=== PATIENT | female | born 1955 | race Caucasian/White ===

== ENCOUNTER → 2016-08-03 | Outpatient (CLI) | payer OTHER ==
[~2016-08-03] MED LIST: ACETAMINOPHEN325 M1 PO; ACETYLCYST200 MG/1 M INH; ACID CONTROL20 MG PO; ACIDOPHILUS1 EAC3 PO; ADVAIR 100-501 EACH; ADVAIR 500-501 EACH INH; ADVAIR HFA 230M1 AER INH; ALBUTEROL NEB INH; ALBUTEROL2.5 MG/0.1 INH; ALBUTEROL2.5 MG/0.5 IH; ALBUTEROL2.5 MG/31 INH; ALBUTEROL2.5 MG/32 INH; ALPRAZOLAM 0.0.25 M1 PO; AMOXICILLIN 50500 M1 PO; AUGMENTIN 500-1 EACH PO; AUGMENTIN 875875 M1 PO; AUGMENTIN 875875 MG PO; AZITHROMYCIN 2250 MG PO; BACTRIM DS TAB1 EACH PO; BROVANA15 MCG/2 M IH; BROVANA15 MCG/2 M INH; BUDESONIDE0.5 MG/2 M INH; CARAFATE 1 GM TA1 G1 OR; CARAFATE 1 GM TA1 G1 PO; CARAFATE1 GM/10 ML PO; CARISOPRODOL 3350 MG PO; CEFEPIME-D1 GM/50 ML IV; CEFTAZIDIM2 GM/50 ML IV; CEFTIN 250 MG250 MG PO; CEFTIN500 MG PO; CEPACOL SORE T1 EAC2 PO; CHANTIX0.5 MG PO; CHANTIX1 MG; CHANTIX1 MG PO; CIPROFLOXACIN500 M3 PO; CLARITHROMYCIN250 M2 PO; CLOTRIMAZOLE10 MG BUCCAL; COLACE 100 MG100 MG PO; COMBIVENT INH; CYCLOBENZAPRINE; CYMBALTA PO; CYMBALTA30 MG PO; CYMBALTA60 MG PO; DALIRESP500 MCG PO; DEBROX; DESYREL PO; DEXILANT60 MG PO; DIFLUCAN100 MG PO; DILAUDID 4 MG TA4 M1 PO; DOXYCYCLINE 10100 MG PO; DUONEB 2.5-0.5 M3 ML INH; ENOXAPARIN40 MG/0.1 SUBQ; ETHAMBUTOL HCL400 MG PO; FAMOTIDINE 40 M40 M1 PO; FLAGYL 250 MG250 MG PO; FLECTOR1 EA TP; GLYCOLAX POWDER17 G1 PO; GLYCOLAX17 GM PO; HYDROCODONE-AP1 EA11 PO; HYDROCODONE-AP1 EAC6 PO; HYDROCODONE-AP1 EACH PO; INVANZ1 GM IV; IRON325 PO; K-DUR 20 MEQ T20 MEQ PO; LASIX 20 MG TAB20 MG PO; LEVAQUIN 500 M500 M2 PO; LEVAQUIN 750 M750 MG PO; LISINOPRIL PO; LISINOPRIL20 MG PO; LYRICA PO; LYRICA150 MG PO; LYRICA225 MG PO; MAALOX SUSPENS148 ML PO; MAGIC MOUTHWASH SWISH&SPIT; MAGNESIUM HYDROXIDE PO; MIRALAX17 GM PO; MIRALAX255 GM PO; MIRAPEX0.125 MG PO; MOM PO; MUCINEX TA600 MG/TA1 PO; MUCINEX600 MG PO; MYCOBUTIN150 MG PO; NICOTINE TRANSD14 M1 TOP; NICOTINE TRANSD21 M1 TRANSDERM; NORCO 10-325 T1 EACH PO; NORCO 5-325 TA1 EACH PO; NYSTATIN 1100000 U/M PO; NYSTATIN 1100000 U/M SW&SWALLOW; NYSTATIN 1100000 U/M SWISH&SPIT; OMEPRAZOLE 20 M20 M1 PO; OXYBUTYNIN 5 MG5 M1 PO; OXYCODONE HCL 55 MG PO; PERCOCET 5-3251 EACH PO; POTASSIUM CHLORIDE PO; PREDNISONE 10 M10 M1 PO; PREDNISONE 10 M10 MG; PREDNISONE 10 M10 MG PO; PREDNISONE 20 M20 M1 PO; PREDNISONE 20 M20 MG PO; PREDNISONE 5 MG5 M1 PO; PREDNISONE50 MG PO; PRILOSEC 20 MG20 MG PO; PROBIOTIC1 EAC1 PO; PROTONIX40 M1 PO; PROTONIX40 M2 PO; PULMICORT0.25 MG/1 INH; PULMICORT0.25 MG/2 IH; PULMICORT0.5 MG/2 M INH; REGLAN 5 MG TAB5 M1 PO; REGLAN 5 MG TAB5 MG PO; REQUIP0.5 MG; REQUIP0.5 MG PO; ROCEPHIN 11 GM/1001 IV; ROPINIROLE HCL12 MG; SIMETHICON CHEW80 M1 PO; SOLU-MEDRO125 MG/24 IV PUSH; SPIRIVA INH; SYMBICORT160 MCG/4. INH; TAMSULOSIN HCL0.4 M1 PO; TESSALON PERLE100 MG PO; TRAMADOL 50 MG50 MG PO; TRAZODONE 150150 M1 PO; TRIAMCINOLONE A80 G2; TUCKS MEDICATE1 EAC1; VENTOLIN HFA 1818 GM INH; VIBRAMYCIN 100100 MG PO; VICODIN; XANAX 0.5 MG0.5 M1 PO; ZANAFLEX4 MG PO; ZANTAC 150MG T150 M1 PO; ZESTRIL20 MG PO; ZOFRAN 4 MG ORAL4 M1 DIS
== END ==
LOC: RAD 10:50
DX: R06.00 Dyspnea, unspecified (principal)

== ENCOUNTER 2016-08-07 11:01 | Emergency (ER) | payer OTHER ==
[~2016-08-07] VITALS: Ht 152.4 cm; Wt 43.1 kg
--- NOTE | ~2016-08-07 | EKG ---
[address] [place] [address] ELECTROCARDIOGRAM REPORT Name: DEYANIRA BAILEY Room #: PRE [facility]..#: [id number] Admission: Attend Phys: Discharge: Date of : 57 Report #: [id number] THIS REPORT FOR: //name// [facility] ED Test Date: 2016-08-07 Test Time: 11:10:00 Pat Name: DEYANIRA BAILEY Department: Room: Gender: F Top Former: Lew PIMENTEL : 1955 Requested By: Matthew Lara Order Number: [id number] MD: Brian Gr Measurements Intervals [place] Rate: 97 P: 90 NH: 132 QRS: 73 QRSD: 81 T: 64 QT: 344 QTc: 437 Interpretive Statements Sinus rhythm Compared to ECG 04/14/2016 11:57:36 Sinus tachycardia no longer present Electronically Signed On 08-07-2016 11:22:53 CORRECTIONS IDENTIFICATION TECHNICIAN by Brian Gr [email or web address] <ELECTRONICALLY SIGNED> By: Brian Gr MD 08/07/16 1122 1110 1110 Brian Gr MD /KENNETH
[~2016-08-07 11:01] MED LIST changes: -CHANTIX0.5 MG PO; -OXYBUTYNIN 5 MG5 M1 PO; -ROCEPHIN 11 GM/1001 IV; -SOLU-MEDRO125 MG/24 IV PUSH; -TESSALON PERLE100 MG PO; -ZANAFLEX4 MG PO
[2016-08-07 11:19] LABS: ABSOLUTE NEUTROPHILS 3.1 thou/uL (1.4-8.2); BASOPHILS 1.1 % (0.0-2.0); EOSINOPHILS 3.7 % (0.0-3.0); HEMOGLOBIN 9.7 gm/dL (12.0-15.0); LYMPHOCYTES 15.8 % (24.0-44.0); MCH 28.4 pg (26.0-34.0); MCHC 33.4 % (28.0-37.0); MCV 85.2 fL (80.0-100.0); MONOCYTES 10.3 % (1.0-8.0); PLATELET COUNT 294 thou/uL (150-400); POLYS 69.1 % (36.0-66.0); RDW 17.5 % (10.5-14.5); WBC 4.4 thou/uL (4.0-11.0)
[2016-08-07] MEDS ORDERED: CHANTIX0.5 MG PO (11:19)
[2016-08-07] MEDS ORDERED: ZANAFLEX4 MG PO (11:19)
[2016-08-07 11:20] LABS: MANUAL DIFF NO
[2016-08-07 11:27] LABS: ANION GAP 1 mmol/L (7-16); BUN 8 mg/dL (7-18); CALCIUM 8.7 mg/dL (8.5-10.1); CHLORIDE 95 mmol/L (98-107); CO2 35 mmol/L (21-32); CREATININE 0.7 mg/dL (0.6-1.3); GLUCOSE 108 mg/dL (70-99); POTASSIUM 4.2 mmol/L (3.5-5.1); SODIUM 131 mmol/L (136-145)
[2016-08-07 11:36] LABS: ALBUMIN 3.4 g/dL (3.4-5.0); ALKALINE PHOSPHATASE 87 U/L (46-116); SGOT 7 U/L (15-37); SGPT 13 U/L (30-65); TOTAL BILIRUBIN 0.3 mg/dL (<0.1-1.0); TOTAL PROTEIN 7.1 g/dL (6.4-8.2); TROPONIN-I < 0.04 ng/mL (<0.04-0.07)
[2016-08-07] MEDS ORDERED: PREDNISONE 20 M20 MG PO (14:50)
[2016-08-22] MEDS ORDERED: SOLU-MEDRO125 MG/24 IV PUSH (10:51)
[2016-08-22] MEDS ORDERED: DUONEB 2.5-0.5 M3 ML INH (10:51)
[2016-08-22] MEDS ORDERED: ROCEPHIN 11 GM/1001 IV (10:52)
[2016-08-22] MEDS ORDERED: OXYBUTYNIN 5 MG5 M1 PO (10:52)
[2016-09-04] MEDS ORDERED: TESSALON PERLE100 MG PO (17:05)
== END 2016-08-07 15:16 | disposition home or self-care (01) ==
LOC: ER 11:01
PROVIDERS: Physician Assistant
DX: J44.1 Chronic obstructive pulmonary disease with (acute) exacerbation (principal); K21.9 Gastro-esophageal reflux disease without esophagitis; M79.7 Fibromyalgia; F41.9 Anxiety disorder, unspecified; G25.81 Restless legs syndrome; F17.210 Nicotine dependence, cigarettes, uncomplicated; Z90.710 Acquired absence of both cervix and uterus; Z90.89 Acquired absence of other organs; Z91.040 Latex allergy status; Z88.1 Allergy status to other antibiotic agents

== ENCOUNTER → 2016-08-10 | Outpatient (CLI) | payer OTHER ==
[~2016-08-10] MED LIST changes: +CHANTIX0.5 MG PO; +OXYBUTYNIN 5 MG5 M1 PO; +ROCEPHIN 11 GM/1001 IV; +SOLU-MEDRO125 MG/24 IV PUSH; +TESSALON PERLE100 MG PO; +ZANAFLEX4 MG PO
== END ==
LOC: RAD 12:58
DX: R06.00 Dyspnea, unspecified (principal); J44.1 Chronic obstructive pulmonary disease with (acute) exacerbation; J45.901 Unspecified asthma with (acute) exacerbation

== ENCOUNTER → 2016-10-30 | Outpatient (CLI) | payer OTHER | LOC: RAD 10:41 | DX: R06.02 Shortness of breath (principal) ==

== ENCOUNTER 2016-11-10 20:09 | Inpatient (IN) | payer OTHER ==
[~2016-11-10] VITALS: Ht 152.4 cm; Wt 46.0 kg
--- NOTE | ~2016-11-10 | EKG ---
[address] [place] [address] ELECTROCARDIOGRAM REPORT Name: DEYANIRA BAILEY Room #: 247-P ADM IN M.R.#: [id number] Admission: 11/10/16 Attend Phys: Wm Eddy Discharge: Date of : 57 Report #: [id number] THIS REPORT FOR: //name// [facility] ED Test Date: 2016-11-10 Test Time: 20:20:41 Pat Name: DEYANIRA BAILEY Department: Room: 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 : 1955 Requested By: Dash Menezes Order Number: [id number] MD: Arnel Balderas Measurements Intervals [place] Rate: 132 P: 97 NV: 126 QRS: 51 QRSD: 91 T: 63 QT: 301 QTc: 446 Interpretive Statements Sinus tachycardia Artifact in lead(s) I,II,III,aVR,aVL,aVF,V3,V4 Compared to ECG 09/04/2016 16:07:41 no significant change was found Electronically Signed On 11-12-2016 14:55:54 CDT by Arnel Balderas [email or web address] <ELECTRONICALLY SIGNED> By: Arnel Balderas MD, [facility] 11/12/16 1455 19 19 Arnel Balderas MD, [facility] /EPI
--- NOTE | ~2016-11-10 | D ---
[facility] [place] [address] DISCHARGE SUMMARY Name: DEYANIRA BAILEY Room #: 205-P [facility] IN M.R.#: [id number] Admission: 11/10/16 Attend Phys: Wm Eddy Discharge: 11/16/16 Date of : 57 Report #: [id number] THIS REPORT FOR: //name// CC: Juan Mei FINAL DIAGNOSES: 1. Acute exacerbation of chronic obstructive pulmonary disease. 2. MAC pulmonary infection. 3. Hypertension. 4. Chronic back pain. 5. Tobacco abuse. 6. Acute hypercapnic respiratory failure. PROCEDURES: 1. BiPAP use. 2. Cardiac catheterization. HOSPITAL COURSE: Ms. Bailey was admitted with shortness of breath and was found to have hypercapnic respiratory failure. She was placed on BiPAP, which she initially declined. Overnight, her ABG was improved. She did wear BiPAP few hours the next couple of nights. There was some elevated troponin. She underwent a cardiac catheterization, which only showed mild LAD disease with normal LV function, mildly elevated PA pressure about [address] Roque felt her elevated troponin, was related to the hypoxia from her COPD. She continued antibiotics for her chronic MAC pulmonary infection. She had no other interval complication. PHYSICAL EXAMINATION: GENERAL: On the day of discharge, she was awake and alert. VITAL SIGNS: Temperature 36.7, pulse 83-114, respiration 16, blood pressure 108/70, O2 sat 99% on 2 liters. LUNGS: Has expiratory wheezing. HEART: Regular. ABDOMEN: Soft. EXTREMITIES: Showed no edema. DISPOSITION: [facility] will [facility]. She has strongly encouraged to stop smoking. Current medications will be ordered on transfer. Our service will follow her there. <ELECTRONICALLY SIGNED> By: Pablito Nam MD 11/17/16 0830 1100 1156 Pablito Nam MD /nt
--- NOTE | ~2016-11-10 | H ---
[facility] [place] [address] HISTORY AND PHYSICAL Name: DEYANIRA BAILEY Room #: 247-P ADM IN M.R.#: [id number] Admission: 11/10/16 Attend Phys: Wm Eddy Discharge: Date of : 57 Report #: [id number] THIS REPORT FOR: //name// CC: Juan Mei DATE OF SERVICE: 11/11/2016 CHIEF COMPLAINT: Shortness of breath. HISTORY OF PRESENT ILLNESS: The patient is a 61-year-old female with a known history of severe COPD and MAC pulmonary infection, who presented to the Emergency Room with worsening shortness of breath. She said symptoms seem to be getting worse for about the day, but approximately 30 minutes prior to presentation, she became severely short of breath and was having hard time taking a deep breath. She has had nonproductive cough, but denies any fever. She has had multiple admissions in the past related to COPD and her chronic infection. She has had several admissions to an LTAC facility for prolonged IV antibiotics and pulmonary treatments. She does continue to smoke as well. Recommendations were for BiPAP overnight, which she refused. This morning she seems more alert. There were signs of hypercapnic respiratory failure on ABG, but she seems to have stabilized overnight. She is well known to our service as well as the Pulmonary service. 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 PAST SURGICAL HISTORY: She has had a partial hysterectomy. FAMILY HISTORY: Noncontributory. SOCIAL HISTORY: She has got a 90-sqio-pweu history of smoking and smokes daily, no chronic alcohol use. ALLERGIES: LEVAQUIN causing tendinitis and nausea and topically intolerant to LATEX. MEDICATIONS: DuoNeb, oxybutynin, Protonix, hydrocodone, Zithromax daily, lisinopril, ReQuip, Lyrica, Mucinex, Cymbalta, Advair, mycobutin, ethambutol, Spiriva. REVIEW OF SYSTEMS: She denies headache, chest pain, shortness of breath, abdominal pain, dysuria, syncope or fall. PHYSICAL EXAMINATION: [address] [address] HISTORY AND PHYSICAL Name: DEYANIRA BAILEY Room #: [facility] IN .R.#: [id number] Admission: 11/10/16 Attend Phys: Wm Eddy Discharge: Date of : 57 Report #: [id number] VITAL SIGNS: Temperature 35.2, pulse , respirations 17, blood pressure 117/73, O2 sat 100% on 3 liters nasal cannula. GENERAL: She is awake and alert. She knows her surroundings and recognizes me. HEAD AND NECK: Unremarkable. LUNGS: Distant breath sounds, but clear. No wheezing. HEART: Regular, no murmur. ABDOMEN: Soft, normoactive bowel sounds. EXTREMITIES: No edema. She has muscle atrophy throughout. NEUROLOGIC: Global strength 4/5 throughout. ASSESSMENT: 1. Yjurk-zo-jovonzl hypercapnic respiratory failure. 2. Chronic obstructive pulmonary disease exacerbation. 3. Chronic back and pulmonary infection. 4. Chronic back pain. 5. Hypertension. 6. Tobaccoism. 7. Anemia of chronic disease. 8. Mild protein-calorie malnutrition, albumin 3.2. PLAN: She has been watched in ICU overnight and I spoke with Dr. Licea this morning. From a pulmonary standpoint, she seems stable. I think would be able to transfer out CCU . Continue home medications with antibiotics, steroids, and pulmonary treatments. <ELECTRONICALLY SIGNED> By: Pablito Nam MD 11/12/16 0837 0834 1021 Pablito Nam MD /nt
--- NOTE | ~2016-11-10 | HC ---
[facility] [place] [address] CONSULTATION Name: DEYANIRA BAILEY Room #: 205-P ADM IN M.R.#: [id number] Admission: 11/10/16 Attend Phys: Wm Eddy Discharge: Date of : 57 Report #: [id number] THIS REPORT FOR: //name// CC: Juan Mei DATE OF SERVICE: 11/11/2016 REASON FOR CONSULTATION: Respiratory failure. IMPRESSION: 1. Ecqnx-zy-ihluqwz hypercapnic hypoxic respiratory failure. 2. Exacerbation of chronic obstructive pulmonary disease. 3. History of Mycobacterium avium complex. 4. Elevated troponin. 5. Tobacco use. 6. Chronic back pain. 7. Hypertension. 8. Anemia. PLAN: Antibiotics per ID, aerosol therapy, Solu-Medrol. We will check a repeat troponin. May ask Cardiology to see, echo Sunday. She is refusing CT chest, relating she could not lay back. We discussed ____. Continue ICU protocol, EKG, aerosol, antibiotics and corticosteroids. HISTORY OF PRESENT ILLNESS: A very pleasant 61-year-old female, very pleasant, had been doing her usual respiratory treatments and antibiotics per Dr. Dash Mei for Mycobacterium avium. Came into the Emergency Room with increasing shortness breath and cough. No definite peripheral edema. She does have chronic chest pain related to her coughing and pneumonias. She has had long-term antibiotics at [facility]. She has returned to smoking again. No definite sputum production. No fever or chills. CURRENT MEDICATIONS: Include DuoNeb, azithromycin, cefepime, Cymbalta, Lovenox, ethambutol, guaifenesin, hydrocodone, lisinopril, Solu-Medrol, Protonix, rifabutin, Lyrica and Xanax. ALLERGIES: To DALIRESP, LEVAQUIN and LATEX. PAST MEDICAL HISTORY: Include: 1. Emphysema, FEV1 of 0.33, 17%. 2. Fibromyalgia. 3. Hypertension. 4. Mycobacterium avium complex. 5. Cavitary infiltrate. 6. Fibrotic infiltrates. [facility] [address] [place] [address] CONSULTATION Name: DAILYQUEDEYANIRA MAURI Room #: 205-P [facility] IN .R.#: [id number] Admission: 11/10/16 Attend Phys: Wm Eddy Discharge: Date of : 57 Report #: [id number] 7. Diverticulosis. 8. GERD. 9. Anxiety. 10. RLS. 11. Chronic fatigue. 12. Nephrolithiasis. PAST SURGICAL HISTORY: Include tonsillectomy and hysterectomy. FAMILY HISTORY: COPD and lung CA. SOCIAL HISTORY: Negative ETOH, positive tobacco today. REVIEW OF SYSTEMS: No fever or chills, no weight change. Positive chest pain. No palpitation. No nausea or vomiting. Positive orthopnea. PHYSICAL EXAMINATION: VITAL SIGNS: Temperature 95.4, pulse 95, respirations 17 and blood pressure 106/77. EYES: Negative icterus. NECK: Trachea midline. LUNGS: Showed mild wheeze, left greater than right. HEART: Regular. ABDOMEN: Bowel sounds present. EXTREMITIES: Showed no calf tenderness or edema. NEUROLOGIC: She is alert and oriented. LABORATORY DATA: White count 6.3, hemoglobin 10.4 and platelets 258. Chest x-ray showed chronic changes. No new change. BUN 9 and creatinine 0.7. INR 1. Troponin 0.3 and this morning 0.4. <ELECTRONICALLY SIGNED> By: Juan Licea MD 11/13/16 0548 1309 0019 Juan Licea MD /nt
--- NOTE | ~2016-11-10 | EKG ---
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 11/12/16 1505 1235 1235 Arnel Balderas MD, [facility] /EPI
--- NOTE | ~2016-11-10 | HC ---
[facility] [place] [address] CONSULTATION Name: DEYANIRA BAILEY Room #: 247-P ADM IN M.R.#: [id number] Admission: 11/10/16 Attend Phys: Wm Eddy Discharge: Date of : 57 Report #: [id number] THIS REPORT FOR: //name// CC: Juan Mei DATE OF SERVICE: 11/11/2016 INFECTIOUS DISEASE CONSULTATION ATTENDING PHYSICIAN: Eugenio Mei M.D. REASON FOR EVALUATION: Progressive dyspnea and the patient's severe underlying lung disease with known history of Mycobacterium avium, pulmonary infection, who has been on extended period of combination therapy at this point. HISTORY OF PRESENT ILLNESS: The patient is a 61-year-old white female with longstanding issues with COPD that has been complicated by Mycobacterium infection who over the course of the last couple of weeks has had progressive dyspnea. At this point she is essentially unable to do anything activity capellan without becoming progressively short of breath. She restarted smoking, which may be a contributing factor, she questioned the change in weather as well. She was scheduled to have imaging and followup next week. Denies any fevers or chills. Appetite has been fair. She states her weight has been stable. No significant gastrointestinal-related complaints, although she did admit to "stomach flu" prior to the onset of this particular episode. She is on chronic therapy with azithromycin, rifabutin and ethambutol. On followup chest x-ray, she was unchanged, some scarring. She is not encephalopathic at this point. ALLERGIES: QUINOLONES FAIRLY CAUSES TENDONITIS, SOME NAUSEA WELL, LATEX. CURRENT MEDICATIONS: Include ipratropium, albuterol inhaler, hydrocodone acetaminophen, p.r.n. analgesics, and antiemetics. PAST MEDICAL HISTORY: History of COPD, fibromyalgia, hypertension, anxiety, renal lithiasis, chronic back pain, restless legs, some Mycobacterium intracellulare, pulmonary infection, reflux. SOCIAL HISTORY: She is a smoker. No ethanol, no illicit drug use. FAMILY HISTORY: Noncontributory. REVIEW OF SYSTEMS: As above. PHYSICAL EXAMINATION: GENERAL: Appears chronically ill, undernourished, she is pleasant and [facility] [address] [place] [address] CONSULTATION Name: DEYANIRA BAILEY Room #: 247-P [facility] IN ..#: [id number] Admission: 11/10/16 Attend Phys: Wm Eddy Discharge: Date of : 57 Report #: [id number] cooperative. She is in mild distress at this point, although she is not exerting herself in any way. VITAL SIGNS: Temperature 97.8, pulse 134, respirations 22, blood pressure 98/50. SKIN: Warm, dry, no rashes. HEENT: Neck is supple. LUNGS: Diminished breath sounds. HEART: She has got some respiratory wheezes, she has got some course sounding crackles without evidence of consolidation. ABDOMEN: Soft, nontender. There are no peritoneal signs. GENITOURINARY: Deferred. RECTAL: Deferred. LABORATORY DATA: Troponin was elevated on two occasions at 0.3 and 0.4. PT 10.0, INR of 1.0. Electrolytes; Sodium 139, potassium 4.7, chloride 101, bicarbonate is 31, BUN and creatinine 9 and 0.7. LFTs unremarkable. Albumin of 3.2, total protein 7.3. Estimated GFR of 85. Chest x-ray showed chronic changes without acute process from previous. CBC: White count 6.3, H and H 10.4 and 31.4, platelets of 258. ASSESSMENT: 1. Chronic respiratory failure complicated by chronic pneumonitis with Mycobacterial avium, may have acute process, although it may be something occult. She notes she started smoking, that certainly could contribute. We will restart her combination therapy, monitor expectantly with pulmonary evaluation, probably going to get that imaging CT of the chest since she is here. If there is any opportunity to get any respiratory secretions, would favor that as well. We will see how she does clinically. <ELECTRONICALLY SIGNED> By: Pierce Puente MD 11/12/16 0842 0623 1926 iPerce Puente MD /nt
--- NOTE | ~2016-11-10 | 2DMMODE ---
[facility] [address] [place] [address] 2 D/M-MODE ECHOCARDIOGRAM Name: DEYANIRA BAILEY Room #: 205-P ADM IN M.R.#: [id number] Admission: 11/10/16 Attend Phys: Adrian Goel Discharge: Date of : 57 Date of Service: 11/13/16 1304 Report #: [id number] THIS REPORT FOR: //name// APPROVED REPORT Study performed: 11/13/2016 09:29:16 EXAM: Comprehensive 2D, Doppler, and color-flow Echocardiogram Patient Location: Bedside Room #: 205 Blood Pressure: 115/74 mmHg HR: 83 bpm Other Information Study Quality: Adequate Indications COPD CAD 2D Dimensions LVEF(%): 40.12 (>50%) IVSd: 6.73 (7-11mm) LVOT Diam: 16.00 (18-24mm) LVDd: 40.08 mm PWd: 7.24 (7-11mm) Ascending Ao: 23.97 (22-36mm) LVDs: 32.37 (25-40mm) Aortic Root: 23.19 mm Cueva's LVEF: 40.12 % Volumes Left Atrial Volume (Systole) Single Plane 4CH: 29.54 mL Single Plane 2CH: 12.17 mL LA ESV Index: 15.00 mL/m2 Aortic Valve AoV Peak Larry.: 1.06 m/s AO Peak Gr.: 4.98 mmHg LVOT Max P.05 mmHg LVOT Max V: 0.72 m/s Mitral Valve E/A Ratio: 2.1 MV E Max Larry.: 0.91 m/s [facility] [address] [place] [address] 2 D/M-MODE ECHOCARDIOGRAM Name: DEYANIRA BAILEY Room #: 205-P [facility] IN [facility].#: [id number] Admission: 11/10/16 Attend Phys: Adrian Goel Discharge: Date of : 57 Date of Service: 11/13/16 1304 Report #: [id number] MV A Larry.: 0.44 m/s Pulmonary Valve PV Peak Larry.: 0.67 m/s PV Peak Gr.: 1.79 mmHg Tricuspid Valve TR Peak Larry.: 2.26 m/s RAP Estimate: 5.00 mmHg TR Peak Gr.: 20.45 mmHg PA Pressure: 26.00 mmHg Left Ventricle The left ventricle is normal size. Mid-distal septum hypokinesis. Basal and mid inferior hypokinesis. There is normal left ventricular wall thickness. Left ventricular systolic function is normal. The left ventricular ejection fraction is within the normal range. Left ventricular systolic function is moderately decreased. LVEF is 45%. Transmitral Doppler flow pattern suggests pseudonormalization. Right Ventricle The right ventricle is normal size. The right ventricular systolic function is normal. Atria The left atrium size is normal. The right atrium size is normal. Aortic Valve The aortic valve is normal in structure. No aortic regurgitation is present. There is no aortic valvular stenosis. Mitral Valve The mitral valve is normal in structure. No mitral regurgitation. No evidence of mitral valve stenosis. Tricuspid Valve The tricuspid valve is normal in structure. Trace tricuspid regurgitation. Pulmonic Valve The pulmonary valve is normal in structure. There is no pulmonic valvular regurgitation. Great Vessels The aortic root is normal in size. IVC is normal in size and collapses with >50% inspiration [facility] [address] [place] [address] 2 D/M-MODE ECHOCARDIOGRAM Name: DEYANIRA BAILEY Room #: 205-P ADM IN M.R.#: [id number] Admission: 11/10/16 Attend Phys: Adrian Goel Discharge: Date of : 57 Date of Service: 11/13/16 1304 Report #: [id number] Pericardium There is a small pericardial effusion. <Conclusion> Left ventricular systolic function is moderately decreased. Mid-distal septum hypokinesis. Basal and mid inferior hypokinesis. Transmitral Doppler flow pattern suggests pseudonormalization. LVEF 45%. The aortic valve is normal in structure. There is no aortic insufficiency or stenosis. The mitral valve is normal in structure. No mitral regurgitation. There is a small pericardial effusion. <ELECTRONICALLY SIGNED> By: Arnel Balderas MD, [facility] 11/13/16 1304 1304 1304 Arnel Balderas MD, [facility] /INF
--- NOTE | ~2016-11-10 | EKG ---
[place] [address] [address] [facility] 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 : 1955 Requested By: Juan Licea Order Number: [id number] MD: Arnel Balderas Measurements Intervals [place] Rate: 94 P: 87 MA: 136 QRS: 69 QRSD: 81 T: 254 QT: 399 QTc: 500 Interpretive Statements Sinus rhythm Nonspecific T abnormalities, diffuse leads Borderline prolonged QT interval Compared to ECG 09/04/2016 16:07:41 T-wave abnormality now present Electronically Signed On 11-12-2016 15:11:36 CDT by Arnel Balderas [email or web address] <ELECTRONICALLY SIGNED> By: Arnel Balderas MD, [facility] 11/12/16 1511 0743 0743 Arnel Balderas MD, [facility] /EPI
--- NOTE | ~2016-11-10 | CATHLAB ---
[facility] [address] [place] [address] INVASIVE PROCEDURE REPORT Name: DEYANIRA BAILEY Room #: 205-P [facility] IN [facility].#: [id number] Admission: 11/10/16 Attend Phys: Adrian Goel Discharge: 11/16/16 Date of : 57 Date of Service: 11/16/16 0839 Report #: [id number] THIS REPORT FOR: //name// CC: Juan Mei DATE OF SERVICE: 11/16/2016 PROCEDURE: Right and left cardiac catheterization. INDICATION: Respiratory failure, positive troponins, COPD. DESCRIPTION OF PROCEDURE: Full risks, benefits and alternatives of cardiac catheterization were explained to the patient. All questions were answered. Informed consent was obtained. The right groin area was prepped and draped in a sterile manner. Lidocaine was given subcutaneously. A 4-Argentine sheath was inserted into the right femoral artery, a 7-Argentine sheath was inserted into the right femoral vein, both via modified Seldinger techniques. A Sardis-Gonzales catheter was introduced into the right femoral vein and passed retrograde up into the right atrium. Please see the laborer shipyard hemodynamics for full measurements. PRESSURES: The mean right atrial pressure is 9. The RV pressure is approximately 31/10 mmHg. The mean capillary wedge pressure is 11. The PA pressure is approximately 32/90 mmHg. CORONARY ANATOMY: The left main artery is a moderate to large size caliber vessel, with no flow-limiting lesions. The LAD is a moderate sized caliber vessel, traveling down the anterior wall and wrapping around the apex, terminating in the distal inferior wall. There were no flow-limiting lesions in the LAD. Within the proximal segment, there is mild calcification with a mild stenosis, 20%. The first diagonal artery is a small to moderate sized caliber vessel, with no flow-limiting lesions. The left circumflex artery is a moderate size caliber vessel, codominant. There is mild disease in the proximal circumflex, less than 20%. There are multiple obtuse marginal arteries, with no flow-limiting lesions. [facility] [address] [place] [address] INVASIVE PROCEDURE REPORT Name: DEYANIRA BAILEY Room #: 205-P [facility] IN M.R.#: [id number] Admission: 11/10/16 Attend Phys: Adrian Goel Discharge: 11/16/16 Date of : 57 Date of Service: 11/16/16 0839 Report #: [id number] The RCA supplies a small PDA. There were no flow-limiting lesions in the RCA. A left ventriculogram was performed revealing normal LV systolic function, ejection fraction of 60%. There appears to be focal hypokinesis of the anterior lateral segment. The LVEDP is approximately 18 mmHg. There is no gradient across the outflow tract. IMPRESSION: 1. Mild disease in the left anterior descending and left circumflex arteries. 2. Codominant left circumflex system. 3. Normal left ventricular systolic function, with mild hypokinesis of the anterolateral segment. 4. Mildly elevated pulmonary artery pressures. 5. Recommend medical therapy. <ELECTRONICALLY SIGNED> By: Terry Roque MD 11/17/16 0807 0839 1219 Terry Roque MD /nt
[2016-11-10 20:30] LABS: ABSOLUTE NEUTROPHILS 4.6 thou/uL (1.4-8.2); BASOPHILS 1.1 % (0.0-2.0); HEMATOCRIT 31.4 % (37.0-47.0); HEMOGLOBIN 10.4 gm/dL (12.0-15.0); LYMPHOCYTES 15.7 % (24.0-44.0); MCH 30.4 pg (26.0-34.0); MCHC 33.1 g/dL (28.0-37.0); MCV 91.7 fL (80.0-100.0); MONOCYTES 8.9 % (1.0-8.0); PLATELET COUNT 258 thou/uL (150-400); POLYS 72.3 % (36.0-66.0); RBC 3.43 mil/uL (4.20-5.00); RDW 13.7 % (10.5-14.5); WBC 6.3 thou/uL (4.0-11.0)
[2016-11-10 20:31] LABS: MANUAL DIFF NO
[2016-11-10 20:39] LABS: ABG SAMPLE TYPE VENOUS; BE(vivo) -0.6 mmol/L (-2 to +3); CALCIUM 8.3 mg/dL (8.5-10.1); CREATININE 0.7 mg/dL (0.6-1.0); HCO3 28.7 mmol/L (22.0-26.0); O2(CT) 4.6 mL/dL (15.0-23.0); O2Hb VENOUS 25.4 (65.0-85.0); PCO2 VENOUS 70.8 mmHg (41.0-51.0); PO2 VENOUS 20.9 mmHg (35.0-45.0); POTASSIUM 4.7 mmol/L (3.5-5.1); STICK SITE LINE; sO2 VENOUS 25.3 % (65.0-85.0); tCO2 30.8 mmol/L (24.0-30.0)
[2016-11-10 20:42] LABS: APTT 31.5 Seconds (24.5-32.8)
[2016-11-10 20:51] LABS: ALBUMIN 3.2 g/dL (3.4-5.0); MAGNESIUM 2.1 mg/dL (1.8-2.4); TOTAL BILIRUBIN 0.3 mg/dL (<0.1-1.0); TOTAL PROTEIN 7.3 g/dL (6.4-8.2); TROPONIN-I 0.04 ng/mL (<0.04-0.07)
[2016-11-10] MEDS ORDERED: FLEXERIL PO (22:15)
[2016-11-10] MEDS ORDERED: NORCO 10-325 T1 EACH PO (22:16)
[2016-11-10] MEDS ORDERED: AZITHROMYCIN500 MG PO (22:17)
[2016-11-10] MEDS ORDERED: ADVAIR HFA115 MCG/21 INH (23:11)
[2016-11-10] MEDS ORDERED: ALBUTEROL2.5 MG/31 INH (23:12)
[2016-11-10] MEDS ORDERED: CYMBALTA60 MG PO (23:14)
[2016-11-10] MEDS ORDERED: SPIRIVA INH (23:18)
[2016-11-10 23:39] VITALS: BP 132/98
[2016-11-10 23:45] VITALS: BP 120/85
[2016-11-10 23:46] VITALS: BP 98/50
[2016-11-11] VITALS (19 sets, daily range): BP systolic 73–122; BP diastolic 49–82
[2016-11-12] VITALS (8 sets, daily range): BP systolic 91–122; BP diastolic 60–76
[2016-11-12 05:21] LABS: ABG SAMPLE TYPE ARTERIAL; HCO3 26.8 mmol/L (22.0-26.0); LACTATE 1.13 mmol/L (0.5-2.0); O2(CT) 13.4 mL/dL (15.0-23.0); PCO2 43.2 mmHg (35.0-45.0); STICK SITE R.BRACHIAL; pH 7.411 (7.360-7.450); sO2 98.1 % (92.0-98.0); tCO2 28.2 mmol/L (24.0-30.0)
[2016-11-12 06:48] LABS: RDW 13.7 % (10.5-14.5)
[2016-11-12 06:49] LABS: HEMATOCRIT 27.8 % (37.0-47.0); HEMOGLOBIN 9.5 gm/dL (12.0-15.0); MCH 30.3 pg (26.0-34.0); MCV 89.3 fL (80.0-100.0); RBC 3.12 mil/uL (4.20-5.00)
[2016-11-12 06:54] LABS: CALCIUM 8.7 mg/dL (8.5-10.1); CREATININE 0.6 mg/dL (0.6-1.0); POTASSIUM 4.6 mmol/L (3.5-5.1)
[2016-11-12 06:57] LABS: WBC 1.3 thou/uL (4.0-11.0)
[2016-11-12 12:48] LABS: HEMATOCRIT 30.1 % (37.0-47.0); HEMOGLOBIN 10.1 gm/dL (12.0-15.0); MCH 30.1 pg (26.0-34.0); MCHC 33.4 g/dL (28.0-37.0); MCV 90.1 fL (80.0-100.0); PLATELET COUNT 267 thou/uL (150-400); RBC 3.34 mil/uL (4.20-5.00); RDW 13.5 % (10.5-14.5); WBC 2.7 thou/uL (4.0-11.0)
[2016-11-12 12:50] LABS: MANUAL DIFF YES
[2016-11-12 13:18] LABS: ABSOLUTE NEUTROPHILS 2.2 thou/uL (1.4-8.2); TOTAL CELL COUNT 100
[2016-11-12 13:19] LABS: ANISOCYTOSIS SLIGHT
[2016-11-13] VITALS: BP 121/81
[2016-11-13 03:32] LABS: HEMOGLOBIN 9.7 gm/dL (12.0-15.0); MCH 29.9 pg (26.0-34.0); MCHC 33.4 g/dL (28.0-37.0); MCV 89.6 fL (80.0-100.0); RBC 3.24 mil/uL (4.20-5.00); RDW 13.1 % (10.5-14.5); WBC 3.2 thou/uL (4.0-11.0)
[2016-11-13 03:46] LABS: CALCIUM 8.5 mg/dL (8.5-10.1); CREATININE 0.7 mg/dL (0.6-1.0); POTASSIUM 4.3 mmol/L (3.5-5.1)
[2016-11-13 04:43] VITALS: BP 123/79
[2016-11-13 07:51] VITALS: BP 115/74
[2016-11-13 12:07] VITALS: BP 113/72
[2016-11-13 16:28] VITALS: BP 104/59
[2016-11-13 19:41] VITALS: BP 100/62
[2016-11-14 03:49] VITALS: BP 77/48
[2016-11-14 07:45] VITALS: BP 78/61
[2016-11-14 11:00] VITALS: BP 118/71
[2016-11-14 16:40] VITALS: BP 94/58
[2016-11-14 19:24] VITALS: BP 109/62
[2016-11-15 03:16] VITALS: BP 83/49
[2016-11-15 07:22] VITALS: BP 109/67
[2016-11-15 16:49] VITALS: BP 121/68
[2016-11-15 19:27] VITALS: BP 113/72
[2016-11-16] VITALS (10 sets, daily range): BP systolic 94–143; BP diastolic 62–83
[2016-11-16 03:58] LABS: CALCIUM 8.4 mg/dL (8.5-10.1); CREATININE 0.6 mg/dL (0.6-1.0); POTASSIUM 4.7 mmol/L (3.5-5.1)
[2016-11-16 04:30] LABS: HEMATOCRIT 29.8 % (37.0-47.0); MCH 30.1 pg (26.0-34.0); MCHC 33.6 g/dL (28.0-37.0); MCV 89.7 fL (80.0-100.0); RBC 3.33 mil/uL (4.20-5.00); RDW 13.7 % (10.5-14.5); WBC 4.7 thou/uL (4.0-11.0)
[2016-11-16 08:26] LABS: ABG SAMPLE TYPE ARTERIAL; BE(vivo) 5.5 mmol/L (-2 to +3); HCO3 31.1 mmol/L (22.0-26.0); LACTATE 1.35 mmol/L (0.5-2.0); O2(CT) 15.3 mL/dL (15.0-23.0); O2Hb 97.8 % (92.0-98.0); PCO2 50.8 mmHg (35.0-45.0); PO2 141.5 mmHg (80.0-100.0); pH 7.405 (7.360-7.450); sO2 98.8 % (92.0-98.0); tCO2 32.7 mmol/L (24.0-30.0)
[2016-11-16 08:27] LABS: ABG COMMENT AO; STICK SITE LINE
[2016-11-16 08:29] LABS: ABG SAMPLE TYPE VENOUS; BE(vivo) 4.4 mmol/L (-2 to +3); HCO3 30.4 mmol/L (22.0-26.0); LACTATE 1.28 mmol/L (0.5-2.0); O2(CT) 8.8 mL/dL (15.0-23.0); O2Hb VENOUS 65.7 (65.0-85.0); PCO2 VENOUS 53.3 mmHg (41.0-51.0); PO2 VENOUS 34.8 mmHg (35.0-45.0); sO2 VENOUS 64.2 % (65.0-85.0)
[2016-11-16 08:31] LABS: ABG COMMENT PA; STICK SITE LINE
[2016-11-16] MEDS ORDERED: CARDIZEM CD120 MG PO (11:01)
[2016-11-16] MEDS ORDERED: LISINOPRIL5 MG PO (11:02)
[2016-11-16] MEDS ORDERED: ASPIR 8181 MG PO (11:02)
[2016-11-16] MEDS ORDERED: HYDROCODON-ACE1 EAC7 PO (11:02)
[2016-11-16] MEDS ORDERED: MUCINEX TA600 MG/TAB PO (11:03)
[2016-11-16] MEDS ORDERED: SOLU-MEDRO40 MG/1 M2 IV PUSH (11:03)
== END 2016-11-16 15:24 | DRG 177 ==
LOC: ER 20:09 → EROBS 22:51 → 2N 22:51 → ICU 23:28 → 2N 11-12 17:40
PROVIDERS: Emergency Medicine; Internal Medicine; Internal Medicine Geriatric Medicine; Internal Medicine Pulmonary Disease; Nurse Practitioner Gerontology; Specialist
PROC: 5A09357 Assistance with Respiratory Ventilation, Less than 24 Consecutive Hours, Continuous Positive Airway Pressure (ICD-10-PCS; 2016-11-11)
PROC: B2111ZZ Fluoroscopy of Multiple Coronary Arteries using Low Osmolar Contrast (ICD-10-PCS; principal; 2016-11-16)
PROC: 4A023N8 Measurement of Cardiac Sampling and Pressure, Bilateral, Percutaneous Approach (ICD-10-PCS; principal; 2016-11-16)
DX: A31.0 Pulmonary mycobacterial infection (principal); J96.22 Acute and chronic respiratory failure with hypercapnia; J96.21 Acute and chronic respiratory failure with hypoxia; J44.1 Chronic obstructive pulmonary disease with (acute) exacerbation; E44.1 Mild protein-calorie malnutrition; J44.0 Chronic obstructive pulmonary disease with (acute) lower respiratory infection; Z68.1 Body mass index [BMI] 19.9 or less, adult; I10 Essential (primary) hypertension; F41.9 Anxiety disorder, unspecified; G89.29 Other chronic pain; M54.9 Dorsalgia, unspecified; G25.81 Restless legs syndrome; K21.9 Gastro-esophageal reflux disease without esophagitis; F17.210 Nicotine dependence, cigarettes, uncomplicated; D72.819 Decreased white blood cell count, unspecified; K57.90 Diverticulosis of intestine, part unspecified, without perforation or abscess without bleeding; J18.9 Pneumonia, unspecified organism; D63.8 Anemia in other chronic diseases classified elsewhere; Z91.040 Latex allergy status; Z90.49 Acquired absence of other specified parts of digestive tract; Z88.1 Allergy status to other antibiotic agents; Z87.442 Personal history of urinary calculi; Z90.710 Acquired absence of both cervix and uterus
CPT/HCPCS: 10078; 10081

== ENCOUNTER 2017-02-06 16:09 | Inpatient (IN) | payer OTHER ==
[~2017-02-06] VITALS: Ht 172.7 cm; Wt 43.9 kg
[~2017-02-06 16:09] MED LIST changes: +ADVAIR HFA115 MCG/21 INH; +ASPIR 8181 MG PO; +AZITHROMYCIN500 MG PO; +CARDIZEM CD120 MG PO; +FLEXERIL PO; +HYDROCODON-ACE1 EAC7 PO; +LISINOPRIL5 MG PO; +MUCINEX TA600 MG/TAB PO; +SOLU-MEDRO40 MG/1 M2 IV PUSH
[2017-02-06 16:30] VITALS: BP 109/66
[2017-02-06 17:15] LABS: ABG SAMPLE TYPE ARTERIAL; BE(vivo) 0.6 mmol/L (-2 to +3); LACTATE 0.56 mmol/L (0.5-2.0); O2(CT) 15.4 mL/dL (15.0-23.0); O2Hb 96.9 % (92.0-98.0); PCO2 39.2 mmHg (35.0-45.0); PO2 106.9 mmHg (80.0-100.0); pH 7.422 (7.360-7.450); tCO2 26.2 mmol/L (24.0-30.0)
[2017-02-06 17:16] LABS: STICK SITE L.BRACHIAL
[2017-02-06 19:19] LABS: BASOPHILS 1.2 % (0.0-2.0); EOSINOPHILS 1.3 % (0.0-3.0); HEMATOCRIT 32.4 % (37.0-47.0); HEMOGLOBIN 10.9 gm/dL (12.0-15.0); LYMPHOCYTES 10.8 % (24.0-44.0); MCH 30.7 pg (26.0-34.0); MCHC 33.7 g/dL (28.0-37.0); MCV 91.2 fL (80.0-100.0); MONOCYTES 11.5 % (1.0-8.0); PLATELET COUNT 291 thou/uL (150-400); POLYS 75.2 % (36.0-66.0); RBC 3.55 mil/uL (4.20-5.00); RDW 13.6 % (10.5-14.5); WBC 5.4 thou/uL (4.0-11.0)
[2017-02-06 19:22] LABS: MANUAL DIFF NO
[2017-02-06 19:39] LABS: ALBUMIN 2.9 g/dL (3.4-5.0); CALCIUM 8.4 mg/dL (8.5-10.1); CREATININE 0.6 mg/dL (0.6-1.0); POTASSIUM 3.9 mmol/L (3.5-5.1); TOTAL BILIRUBIN 0.3 mg/dL (<0.1-1.0); TOTAL PROTEIN 6.6 g/dL (6.4-8.2)
[2017-02-06 20:15] VITALS: BP 131/85
[2017-02-06] MEDS ORDERED: LISINOPRIL20 MG PO (21:59)
[2017-02-06] MEDS ORDERED: OXYBUTYNIN 5 MG5 M2 PO (22:01)
[2017-02-06] MEDS ORDERED: LIORESAL 10 MG10 MG PO (22:07)
[2017-02-06] MEDS ORDERED: TRAZODONE HCL50 MG PO (22:08)
[2017-02-06] MEDS ORDERED: VENTOLIN HFA 1818 GM INH (22:09)
[2017-02-06 23:35] VITALS: BP 106/60
[2017-02-07 03:12] VITALS: BP 96/58
[2017-02-07 07:32] VITALS: BP 110/73
[2017-02-07 17:18] VITALS: BP 165/65
[2017-02-07 20:35] VITALS: BP 143/69
[2017-02-08 03:25] VITALS: BP 130/70
[2017-02-08 08:00] VITALS: BP 143/76
[2017-02-08 16:00] VITALS: BP 145/119
[2017-02-08 20:00] VITALS: BP 163/90
[2017-02-09 04:00] VITALS: BP 115/71
[2017-02-09 08:00] VITALS: BP 165/88
[2017-02-09] MEDS ORDERED: SUDOGEST30 MG PO (08:12)
[2017-02-09] MEDS ORDERED: ACETYLCYST200 MG/1 M INH (08:13)
[2017-02-09] MEDS ORDERED: CEFUROXIME500 MG PO (08:13)
[2017-02-09] MEDS ORDERED: PREDNISONE 20 M20 MG PO (08:14)
[2017-02-09 15:06] VITALS: BP 165/88
== END 2017-02-09 16:40 | disposition home or self-care (01) | DRG 189 ==
LOC: 3N 16:09
PROVIDERS: Internal Medicine Geriatric Medicine
DX: J96.21 Acute and chronic respiratory failure with hypoxia (principal); J44.1 Chronic obstructive pulmonary disease with (acute) exacerbation; R04.2 Hemoptysis; F41.9 Anxiety disorder, unspecified; M54.9 Dorsalgia, unspecified; G25.81 Restless legs syndrome; K21.9 Gastro-esophageal reflux disease without esophagitis; G89.29 Other chronic pain; I10 Essential (primary) hypertension; D64.9 Anemia, unspecified; Z88.1 Allergy status to other antibiotic agents; Z91.040 Latex allergy status; Z79.82 Long term (current) use of aspirin; Z79.899 Other long term (current) drug therapy; Z90.711 Acquired absence of uterus with remaining cervical stump; Z87.891 Personal history of nicotine dependence; Z87.442 Personal history of urinary calculi
CPT/HCPCS: 10795

== ENCOUNTER 2017-08-03 15:36 | Inpatient (IN) | payer OTHER ==
[~2017-08-03] VITALS: Ht 152.4 cm; Wt 44.5 kg
--- NOTE | ~2017-08-03 | H ---
[facility] [address] [place] [address] HISTORY AND PHYSICAL Name: DEYANIRA BAILEY Room #: 419-P ADM IN M.R.#: [id number] Admission: 08/03/17 Attend Phys: Wm Eddy Discharge: Date of : 57 Report #: [id number] THIS REPORT FOR: //name// CC: Adrian Mei DATE OF SERVICE: 08/03/2017 CHIEF COMPLAINT: Shortness of breath and cough, congestion. HISTORY OF PRESENT ILLNESS: The patient is a 62-year-old female with a history of severe COPD and Mycobacterium avium complex infection who was admitted from home with increasing shortness of breath. She was seen in the office 2 days ago with increased steroid burst and additional oral antibiotics; however, symptoms are not improved and she has felt her breathing as "tight" and with a congested cough, she has had more wheezing and just felt short of breath. She has had several admissions in the past for very similar symptoms. She is on chronic antibiotic suppression for her MAC pulmonary infection, which is contributing to chronic bronchiectasis. PAST MEDICAL HISTORY: COPD, bronchiectasis, MAC pulmonary infection, hypertension, chronic low back pain, fibromyalgia, iron deficiency anemia, and anxiety. PAST SURGICAL HISTORY: Unknown. FAMILY HISTORY: Noncontributory. SOCIAL HISTORY: A 37-enet-mflq history of smoking, but she says she quit about 2 years ago. No chronic alcohol use. ALLERGIES: LEVAQUIN AND LATEX. MEDICATIONS: Zithromax 500 mg a day, Mycobutin 450 mg a day, ethambutol 800 mg a day, Spiriva daily, DuoNeb q.i.d., Ventolin MDI as needed, pseudoephedrine as needed, baclofen 20 mg t.i.d. p.r.n., Cardizem-CD 120 mg a day, lisinopril 20 mg a day, aspirin 81 mg a day, hydrocodone q.4 hours p.r.n., Tylenol, Lyrica 225 mg twice a day, Cymbalta 60 mg daily, trazodone 75 mg at bedtime, Xanax 0.25 mg t.i.d. p.r.n., Requip 0.5 mg at bedtime, Tessalon Perles, Advair 500 one puff b.i.d., Mucinex b.i.d., MiraLax, prednisone 20 mg a day, oxybutynin 5 mg b.i.d. REVIEW OF SYSTEMS: As above. She denies headache, chest pain, fever, sore throat, nausea, vomiting, diarrhea, constipation, dysuria, or syncope. OBJECTIVE: VITAL SIGNS: Temperature 36.6, pulse 110, respirations 20, blood pressure [address] [address] HISTORY AND PHYSICAL Name: DEYANIRA BAILEY Room #: 419-P [facility] IN M.R.#: [id number] Admission: 08/03/17 Attend Phys: Wm Eddy Discharge: Date of : 57 Report #: [id number] 145/85, O2 sat 100% on 4 liters nasal cannula. GENERAL: She is awake and alert, in no distress. HEAD AND NECK: Unremarkable. LUNGS: She has expiratory wheezing bilaterally with moist cough. HEART: Tachy, regular. No murmur. ABDOMEN: Soft, normoactive bowel sounds. EXTREMITIES: No cyanosis, clubbing or edema. NEUROLOGIC: Motor strength 4/5 throughout. ASSESSMENT: 1. Acute exacerbation of chronic obstructive pulmonary disease. 2. Acute bronchitis. 3. Chronic bronchiectasis. 4. Chronic Mycobacterium avium complex pulmonary infection. 5. Hypertension. 6. Chronic low back pain. 7. Fibromyalgia. PLAN: Lab x-ray data have been ordered. I will ask for studies of respiratory viruses if this is the issue. In the past, she has responded to IV antibiotics and steroids with pulmonary treatments. Home medicines to continue with Lovenox DVT prophylaxis. <ELECTRONICALLY SIGNED> By: Pablito Nam MD 08/04/17 0807 1721 1820 Pablito Nam MD /nt
--- NOTE | ~2017-08-03 | D ---
[facility] [address] [place] [address] DISCHARGE SUMMARY Name: DEYANIRA BAILEY Room #: 419-P DIS IN M.R.#: [id number] Admission: 08/03/17 Attend Phys: Wm Eddy Discharge: 08/07/17 Date of : 57 Report #: [id number] THIS REPORT FOR: //name// CC: Adrian Mei DATE OF SERVICE: 08/07/2017 FINAL DIAGNOSES: 1. Acute exacerbation of chronic obstructive pulmonary disease. 2. Bronchiectasis. 3. Hypertension. HOSPITAL COURSE: The patient was admitted with shortness of breath. Chest x-ray did not show any new infiltrate. Flu and viral screens were still pending; however, she improved significantly with IV antibiotics and IV steroids. MRSA screen was negative. Other home medications are continued. She had no other interval complication. By the time of discharge, she was back down to 3 liters nasal cannula of oxygen at her baseline. She had significantly less wheezing throughout all lung forte and had less productive cough. She was walking the halls independently and was much improved. DISPOSITION: She will be discharged to home with diet and activity as tolerated. Follow up with Dr. Mei and Dr. Licea in 2 weeks. Resume all medications with Ceftin for 1 week and a prednisone taper. <ELECTRONICALLY SIGNED> By: Pablito Nam MD 08/13/17 1250 1221 1716 Pablito Nam MD /kendall
[~2017-08-03 15:36] MED LIST changes: +CEFUROXIME500 MG PO; +LIORESAL 10 MG10 MG PO; +OXYBUTYNIN 5 MG5 M2 PO; +SUDOGEST30 MG PO; +TRAZODONE HCL50 MG PO
[2017-08-03 16:10] VITALS: BP 145/85
[2017-08-03 18:01] LABS: HEMATOCRIT 31.4 % (37.0-47.0); HEMOGLOBIN 10.6 gm/dL (12.0-15.0); MCH 29.8 pg (26.0-34.0); MCHC 33.8 g/dL (28.0-37.0); MCV 88.1 fL (80.0-100.0); RBC 3.57 mil/uL (4.20-5.00); RDW 14.3 % (10.5-14.5); WBC 7.6 thou/uL (4.0-11.0)
[2017-08-03 18:08] LABS: CALCIUM 8.9 mg/dL (8.5-10.1); CREATININE 0.7 mg/dL (0.6-1.0); POTASSIUM 4.6 mmol/L (3.5-5.1)
[2017-08-03 19:12] VITALS: BP 132/78
[2017-08-04 04:14] VITALS: BP 153/79
[2017-08-04 08:55] VITALS: BP 147/75
[2017-08-04 15:35] VITALS: BP 152/88
[2017-08-04 20:00] VITALS: BP 133/72
[2017-08-05 04:30] VITALS: BP 138/82
[2017-08-05 08:00] VITALS: BP 154/90
[2017-08-05 16:00] VITALS: BP 134/72
[2017-08-05 19:26] VITALS: BP 132/72
[2017-08-06 04:00] VITALS: BP 123/71
[2017-08-06 07:20] VITALS: BP 135/89
[2017-08-06 15:10] VITALS: BP 103/68
[2017-08-06 19:15] VITALS: BP 121/70
[2017-08-07 03:54] VITALS: BP 103/63
[2017-08-07 07:15] VITALS: BP 124/68
[2017-08-07] MEDS ORDERED: CEFUROXIME500 MG PO (09:54)
[2017-08-07] MEDS ORDERED: ACETYLCYST200 MG/1 M INH (09:55)
[2017-08-07] MEDS ORDERED: CARDIZEM CD120 MG PO (09:56)
[2017-08-07] MEDS ORDERED: SUDOGEST30 MG PO (09:56)
[2017-08-07] MEDS ORDERED: OXYBUTYNIN 5 MG5 M1 PO (09:56)
[2017-08-07] MEDS ORDERED: PREDNISONE 20 M20 MG PO (09:58)
[2017-08-07 11:08] VITALS: BP 124/68
[2017-08-08 01:08] LABS: ADENOVIRUS Negative (Negative); INFLUENZA A Negative (Negative); INFLUENZA B Negative (Negative); METAPNEUMOVIRUS Negative (Negative); PARAINFLUENZA 1 Negative (Negative); PARAINFLUENZA 2 Negative (Negative); PARAINFLUENZA 3 Negative (Negative); RHINOVIRUS Negative (Negative); RSV A Positive (Negative); RSV B Negative (Negative)
[2018-03-19] MEDS ORDERED: MYAMBUTOL 400400 M1 PO (22:32)
[2018-03-19] MEDS ORDERED: PREDNISONE 5 MG5 M1 PO (22:35)
[2018-03-19] MEDS ORDERED: MYCOBUTIN150 MG PO (22:38)
[2018-03-19] MEDS ORDERED: XANAX 0.25 MG0.25 MG PO (22:41)
[2018-03-20] MEDS ORDERED: TRAZODONE HCL50 MG PO (21:42)
[2018-03-22] MEDS ORDERED: CLARITHROMYCIN250 M2 PO (11:04)
[2018-03-22] MEDS ORDERED: XANAX 0.25 MG0.25 MG PO (11:04)
[2018-03-22] MEDS ORDERED: BENZONATATE100 MG PO (11:05)
[2018-03-22] MEDS ORDERED: MIRALAX17 GM PO (11:05)
[2018-03-22] MEDS ORDERED: PREDNISONE 20 M20 M1 PO (11:06)
[2018-03-22] MEDS ORDERED: CEFUROXIME500 MG PO (11:06)
== END 2017-08-07 13:00 | disposition home or self-care (01) | DRG 191 ==
LOC: 4E 15:36 → ENTRNSPT 08-07 12:44 → EDTRNSPTSTS 08-07 12:52 → 4E 08-07 13:00
PROVIDERS: Internal Medicine Geriatric Medicine
DX: J44.0 Chronic obstructive pulmonary disease with (acute) lower respiratory infection (principal); A31.0 Pulmonary mycobacterial infection; J20.9 Acute bronchitis, unspecified; J44.1 Chronic obstructive pulmonary disease with (acute) exacerbation; I10 Essential (primary) hypertension; M79.7 Fibromyalgia; G89.29 Other chronic pain; M54.5 Low back pain; F41.9 Anxiety disorder, unspecified; Z88.1 Allergy status to other antibiotic agents; Z91.040 Latex allergy status; Z87.891 Personal history of nicotine dependence
CPT/HCPCS: 10783

== ENCOUNTER 2017-11-20 12:59 | Inpatient (IN) | payer OTHER ==
[~2017-11-20] VITALS: Ht 152.4 cm; Wt 49.0 kg
--- NOTE | ~2017-11-20 | HC ---
[facility] [place] [address] [place] [address] CONSULTATION Name: DEYANIRA BAILEY Room #: 463-P ADM IN M.R.#: [id number] Admission: 11/20/17 Attend Phys: Pablito Nam MD Discharge: Date of : 57 Report #: [id number] THIS REPORT FOR: //name// CC: Adrian Nam REASON FOR CONSULTATION: I was asked to evaluate concerning pulmonary Mycobacterium avium complex infection and advanced COPD with exacerbation of such. HISTORY OF PRESENT ILLNESS: The patient has been on treatment for MAC pulmonary infection for over a year. As of yet have not cleared her sputum. She remains on azithromycin, rifabutin and ethambutol. Overall has tolerated the medications well. Presents now with a several-week history of progressive shortness of breath with purulent sputum production. No fever, chills or sweats. She bumped her prednisone from 5 mg to 10 mg a day without any benefit. Now, over the last week has been back down to 5 mg a day. No fever, chills or sweats. Cannot even walk across the room without gasping from breath. Unable to take a bath without significant shortness of breath. She presented to the outpatient clinic today and was admitted from there. No travel. No other risk factors. She has quit smoking over the past 6 months. She requires 3 liters of oxygen per nasal cannula. ALLERGIES: LATEX, LEVAQUIN with nausea. MEDICATIONS: As noted on her SEP, which were reviewed including azithromycin, rifabutin and ethambutol. PAST MEDICAL HISTORY, FAMILY HISTORY, SOCIAL HISTORY: Unchanged from her history and physical and that of my previous consultation in May. Major change has been discontinuation of tobacco following of her child. REVIEW OF SYSTEMS: She has had no pleuritic chest pain. No nausea, vomiting or diarrhea. No dysuria or frequency. PHYSICAL EXAMINATION: VITAL SIGNS: She is afebrile, hemodynamically stable. GENERAL: She was alert and cooperative, short of breath with talking. She is on oxygen per nasal cannula. She was cushingoid. SKIN: Overall, varela with no rash. Thin skin with several ecchymoses to her extremities. HEENT: Unremarkable with no thrush. NECK: Supple. LUNGS: Scattered wheezes throughout with no consolidation. HEART: Regular, without murmur. ABDOMEN: Soft, nontender, no hepatosplenomegaly or mass appreciated. [facility] [address] [place] [address] CONSULTATION Name: DEYANIRA BAILEY Room #: 463-P [facility] IN M.R.#: [id number] Admission: 11/20/17 Attend Phys: Pablito Nam MD Discharge: Date of : 57 Report #: [id number] EXTREMITIES: Unremarkable with no peripheral edema. IMPRESSION AND PLAN: A 62-year-old with underlying chronic obstructive pulmonary disease with exacerbation of such. Still do not have her Mycobacterium under control, but will be reevaluated during his hospital stay with sputum cultures and repeat CT scan. She will continue her current antibiotic therapy for Mycobacterium avium complex along with addition of ceftriaxone. We will also screen for bacterial pathogens. Increase corticosteroids to control her asthma component. <ELECTRONICALLY SIGNED> By: Dash Mei MD 11/21/17 0824 1708 2345 Dash Mei MD /nt
--- NOTE | ~2017-11-20 | HC ---
[facility] [address] [place] [address] CONSULTATION Name: DEYANIRA BAILEY Room #: 431-P [facility] IN ..#: [id number] Admission: 11/20/17 Attend Phys: Pablito Nam MD Discharge: 11/30/17 Date of : 57 Report #: [id number] THIS REPORT FOR: //name// CC: Adrian Nam CHIEF COMPLAINT: Left shoulder pain. HISTORY OF PRESENT ILLNESS: The patient is a pleasant 62-year-old female seen today for evaluation of her left shoulder. The patient reports that she tripped and fell in her room yesterday either over her oxygen tubing or a wheelchair. She landed on her left side, sustaining an injury to her face and left shoulder. She has noted extensive ecchymosis of the arm and pain following this. She was originally placed in a sling yesterday, which she reports she did not tolerate well. She has been admitted for shortness of breath and pulmonary concerns. PAST MEDICAL HISTORY: Significant for COPD with recurrent hospitalizations, bronchiectasis, fibromyalgia, hypertension, Mycobacterium avium complex pulmonary infection, chronic GERD, history of respiratory failure. PAST SURGICAL HISTORY: Partial hysterectomy. SOCIAL HISTORY: The patient reports that she was a prior 24-hzzy-xbkc smoker. Denies alcohol use. ALLERGIES: LATEX, LEVAQUIN, MORPHINE. MEDICATIONS: Please see current MAR. PHYSICAL EXAMINATION: GENERAL: The patient is alert, oriented, answering questions appropriately. VITAL SIGNS: Most recent vitals: Temperature 98.4, pulse 107, respirations 18, BP 133/84, height 5 feet 0 inches, weight 106. EXTREMITIES: Examination of the shoulders reveals the right shoulder has forward elevation actively of 130 degrees. She externally rotates 35 degrees. Mild ecchymosis is noted on the right arm. She has full strength of the upper extremity and intact sensation. The left arm in comparison demonstrates mild swelling about the proximal humerus. Extensive ecchymosis starting from the shoulder and extending just distal to the elbow. Peripheral IV is noted within the dorsum of the hand and wrist. She reports intact sensation over the axillary nerve as well as more distally. She is nontender over the elbow, hand, wrist and fingers. Any attempted motion of the upper extremity, however, reproduces pain proximally about the shoulder. Clavicle appears stable and is nontender. RADIOGRAPHS: Reveal an impacted mildly displaced proximal humerus fracture. [address] [address] CONSULTATION Name: DEYANIRA BAILEY Room #: 431-P [facility] IN ..#: [id number] Admission: 11/20/17 Attend Phys: Pablito Nam MD Discharge: 11/30/17 Date of : 57 Report #: [id number] LABORATORY DATA: Reviewed. IMPRESSION: 1. Left three-part proximal humerus fracture. 2. Multiple medical comorbidities. PLAN: We reviewed the patient's radiographs. We have discussed potential treatment options. In light of her extensive past medical history, I would recommend nonoperative management and overall her fractures in a reasonable position. We discussed immobilization either in a sling or shoulder immobilizer which Rom, her nurse, will get her fitted for today. We discussed this is likely going to be utilized for approximately 4 weeks, at which point we can hopefully initiate physical therapy to begin range of motion exercise and reduce the stiffness that will develop in her shoulder. We have gone over the risks, benefits, alternatives and potential complications of her injury as well as treatment. Questions were encouraged, all were answered. The patient was comfortable in proceeding this manner. <ELECTRONICALLY SIGNED> By: Ti Gauthier MD 01/04/18 0932 1208 14 Ti Gauthier MD /nt
--- NOTE | ~2017-11-20 | H ---
[facility] [place] [address] [address] HISTORY AND PHYSICAL Name: DEYANIRA BAILEY Room #: 463-P [facility] IN M.R.#: [id number] Admission: 11/20/17 Attend Phys: Pablito Nam MD Discharge: Date of : 57 Report #: [id number] THIS REPORT FOR: //name// CC: Adrian Nam DATE OF SERVICE: 11/20/2017 CHIEF COMPLAINT: Shortness of breath. HISTORY OF PRESENT ILLNESS: The patient is a 62-year-old female who was admitted from the office with shortness of breath. She has a longstanding history of COPD and bronchiectasis with recurrent hospitalizations for COPD exacerbation. She also has a history of MAC pulmonary infection. In the last 3 weeks, she has had more wheezing and shortness of breath, especially with exertion. She does wear oxygen continuously. She reports that she stopped smoking several months ago, and she has had less sputum production as a result, but she has just felt more short of breath. She has had some audible wheezing as well. Denies any fever or chills. PAST MEDICAL HISTORY: COPD with recurrent hospitalizations for exacerbation, bronchiectasis, fibromyalgia, hypertension, Mycobacterium avium complex pulmonary infection, chronic gastroesophageal reflux disease, history of hypercapnic hypoxic respiratory failure requiring BiPAP. PAST SURGICAL HISTORY: Partial hysterectomy. FAMILY HISTORY: Noncontributory. SOCIAL HISTORY: She reports that she stopped smoking, but has a 93-dccb-pnxs history of smoking. Denies chronic alcohol use. ALLERGIES: LATEX, LEVAQUIN, MORPHINE. MEDICATIONS: Protonix, Zithromax 250 mg, ethambutol 400 mg daily, rifabutin 150 mg 2 capsules daily, baclofen 10 mg t.i.d., hydrocodone 10 mg q.4 hours p.r.n., trazodone 50 mg one and half tab at bedtime, Xanax 0.25 mg t.i.d., Ventolin inhaler, Spiriva, Requip 0.5 mg at bedtime, Mucinex b.i.d., Lyrica 225 mg twice a day, lisinopril 20 mg, Cymbalta 60 mg, DuoNeb and Advair 500 mcg 1 puff twice a day. REVIEW OF SYSTEMS: She denies headache, chest pain, nausea, vomiting, fever, chills, dysuria, syncope or fall. PHYSICAL EXAMINATION: VITAL SIGNS: Per the nursing note. [address] [address] HISTORY AND PHYSICAL Name: DEYANIRA BAILEY Room #: 463-P [facility] IN ..#: [id number] Admission: 11/20/17 Attend Phys: Pablito Nam MD Discharge: Date of : 57 Report #: [id number] GENERAL: She was awake and alert in the exam room at the office. HEAD AND NECK: Unremarkable. LUNGS: Have expiratory wheezing. HEART: Regular. ABDOMEN: Soft, normoactive bowel sounds. EXTREMITIES: No edema. ASSESSMENT: 1. Chronic obstructive pulmonary disease exacerbation. 2. Bronchiectasis. 3. Mycobacterium avium complex pulmonary infection. 4. Hypertension. 5. Chronic hypoxic respiratory failure. 6. Fibromyalgia. PLAN: Pulmonary and ID consultations. Continue home medications. Consider repeat CT and bronchoscopy. For now usual antibiotics with nebulized treatments and IV steroids. Lovenox for DVT prophylaxis. <ELECTRONICALLY SIGNED> By: Pablito Nam MD 11/20/17 1407 1321 1356 Pablito Nam MD /nt
--- NOTE | ~2017-11-20 | HC ---
[facility] [place] [address] [place] [address] CONSULTATION Name: DEYANIRA BAILEY Room #: 463-P ADM IN M.R.#: [id number] Admission: 11/20/17 Attend Phys: Pablito Nam MD Discharge: Date of : 57 Report #: [id number] THIS REPORT FOR: //name// CC: Eugenio Nam DATE OF SERVICE: 11/20/2017 REFERRING PHYSICIAN: Pablito Nam M.D. PRIMARY CARE PHYSICIAN: Adrian Mei M.D. REASON FOR CONSULTATION: COPD and progressive dyspnea. HISTORY OF PRESENT ILLNESS: The patient is a 62-year-old white female with known COPD, bronchiectasis and Mycobacterium avium complex infection; presents with progressive dyspnea. A pulmonary consultation was requested. The patient is followed longitudinally by Dr. Licea. She states that for the past she has been in her usual state of health until over the past 3 weeks. She has started to notice progressive dyspnea on exertion. Otherwise, denies any fever, night sweats or chills, chest pain or productive cough. She denies any recent nausea, vomiting or diarrhea. She was last hospitalized in the hospital in July 2017. PAST MEDICAL HISTORY: Notable for COPD, emphysema type, baseline FEV1 of 0.32 liters, 17% predicted, oxygen dependent at 3 liters of O2; history of tobacco abuse; fibromyalgia; hypertension; Mycobacterium avium complex pulmonary infection with an apical cavitary disease and fibrotic changes involving the left upper lobe; history of diverticulosis; chronic back pain associated with radiculopathy; gastroesophageal reflux disease; anxiety disorder; history of nephrolithiasis; restless leg syndrome and chronic fatigue. PAST SURGICAL HISTORY: Include hysterectomy, tonsillectomy and prior tongue surgery. ALLERGIES: To LEVOFLOXACIN, which causes tendinitis and severe nausea and LATEX, causes pruritus. HOME MEDICATIONS: List is reviewed. This includes Protonix, Zithromax, ethambutol, rifabutin, baclofen, hydrocodone, trazodone, Xanax, Ventolin MDI, Spiriva, Requip, Mucinex, Lyrica, lisinopril, Cymbalta, DuoNeb and Advair. [facility] [address] [place] [address] CONSULTATION Name: DEYANIRA BAILEY Room #: 463-P [facility] IN ..#: [id number] Admission: 11/20/17 Attend Phys: Pablito Nam MD Discharge: Date of : 57 Report #: [id number] FAMILY HISTORY: Notable for pneumonia in the mother who . She also has COPD. Lung cancer in a maternal aunt. SOCIAL HISTORY: She has smoked most of her life until 2016 and she denies any alcohol use. REVIEW OF SYSTEMS: As mentioned above, otherwise 10-point system review negative. PHYSICAL EXAMINATION: GENERAL: She is awake, alert, in no apparent distress. VITAL SIGNS: Temperature is 98.4 degrees Fahrenheit, pulse 100, respiratory rate is 24, blood pressure 130/70 mmHg and saturation 100%. HEENT: Normocephalic and atraumatic. NECK: Supple, without any lymphadenopathy or thyromegaly. CHEST: Breath sounds are fair without obvious rales or wheezes. CARDIOVASCULAR: Normal S1 and S2. There are no murmurs or gallop. There is no JVD. There is no carotid bruit. Pulses are 2+/4+ bilaterally. ABDOMEN: Soft and nontender. No organomegaly or masses felt. GENITOURINARY: Deferred. RECTAL: Deferred. EXTREMITIES: There is no edema, cyanosis or clubbing. LABORATORY DATA: Pending. IMPRESSION: 1. Progressive dyspnea in this 62-year-old white female. Etiology is probably related to underlying chronic obstructive pulmonary disease with severe pulmonary impairment. It is unclear if her Mycobacterium avium complex infection is contributing. 2. Chronic obstructive pulmonary disease, severe impairment with mild exacerbation. 3. Qedkg-gn-oeeyzns hypoxic respiratory failure. 4. Bronchiectasis along with pulmonary fibrosis along with a history of Mycobacterium avium complex infection. RECOMMENDATIONS: We will review chest x-ray when is available. Agree with current treatment including corticosteroids, bronchodilators. Continue home antibiotics regarding MAC infection. Infectious Disease has been consulted. DVT and GI prophylaxis has been addressed. She may need further imaging studies such as CT chest. Issue regarding possible bronchoscopy has been noted. We will review the chest x-ray and chest CT when available. [address] [address] CONSULTATION Name: DEYANIRA BAILEY Room #: 463-P [facility] IN M.R.#: [id number] Admission: 11/20/17 Attend Phys: Pablito Nam MD Discharge: Date of : 57 Report #: [id number] Thank you for the consultation. <ELECTRONICALLY SIGNED> By: Rashaad Cosme MD 11/22/17 1152 1555 0030 Rashaad Cosme MD /nt
--- NOTE | ~2017-11-20 | D ---
[facility] [place] [address] [place] [address] DISCHARGE SUMMARY Name: DEYANIRA BAILEY Room #: 431-P [facility] IN M.R.#: [id number] Admission: 11/20/17 Attend Phys: Pablito Nam MD Discharge: 11/30/17 Date of : 57 Report #: [id number] THIS REPORT FOR: //name// CC: Adrian Nam DATE OF SERVICE: 11/30/2017 FINAL DIAGNOSES: 1. Chronic obstructive pulmonary disease exacerbation. 2. Left proximal humerus fracture. 3. Metabolic encephalopathy. 4. Mycobacterium avium pulmonary infection. 5. Hypertension. HOSPITAL COURSE: The patient was admitted with COPD exacerbation. She was treated with steroids, antibiotics and nebulized treatments. She was seen by the ID and Pulmonary Services. Unfortunately, the first night of hospitalization, she suffered a fall in her room, resulting in a left proximal humerus fracture. Orthopedics assessed her and placed her in a shoulder immobilizer. She had a lot of trouble with pain control and her usual hydrocodone was not controlling it. Fentanyl, both IV and by patch were added, but the patch dose was increased and she was switched to oral 5 mg oxycodone. She became confused and drowsy. She was moved to ICU briefly, but never developed any respiratory issues. The oxycodone was discontinued due to nausea. Xanax had already been discontinued. Her p.r.n. baclofen and trazodone were stopped. The fentanyl patch was removed. After about 24 hours, she cleared and returned to her baseline. She then transferred out of ICU back to regular floor. Hydrocodone 5 mg was resumed and a low dose of baclofen and Lyrica for her chronic pain. It was noted that she was taking quite a high dose of Lyrica chronically at home, along with hydrocodone 10 mg at home, along with Xanax and baclofen at home without any issues. Hydrocodone, baclofen and Lyrica were all resumed for pain control of the acute fracture at lower doses, which she tolerated without incident. IV antibiotics were switched to oral along with oral steroids. DISPOSITION: She will be transferred to a [facility] for physical and occupational therapy. Diet is regular. Activity as tolerated. She is nonweightbearing on the left arm with shoulder immobilizer. She will need to follow up with Ortho in 1 month for x-ray. She will need an audiology assessment of her hearing. Her Zithromax has been switched to Biaxin. She is on hydrocodone 5 mg, baclofen 10 mg as needed and Lyrica 75 mg twice a day for [address] [address] DISCHARGE SUMMARY Name: DEYANIRA BAILEY Room #: 431-P [facility] IN M.R.#: [id number] Admission: 11/20/17 Attend Phys: Pablito Nam MD Discharge: 11/30/17 Date of : 57 Report #: [id number] chronic neuropathic pain. Follow up with Dr. Mei following discharge from [facility]. <ELECTRONICALLY SIGNED> By: Pablito Nam MD 12/04/17 0836 1550 1838 Pablito Nam MD /nt
[2017-11-20 13:55] VITALS: BP 90/59
[2017-11-20 15:10] LABS: HEMATOCRIT 28.1 % (37.0-47.0); HEMOGLOBIN 9.4 gm/dL (12.0-15.0); MCH 29.8 pg (26.0-34.0); MCHC 33.6 g/dL (28.0-37.0); MCV 88.6 fL (80.0-100.0); RBC 3.17 mil/uL (4.20-5.00); RDW 14.3 % (10.5-14.5); WBC 4.2 thou/uL (4.0-11.0)
[2017-11-20 15:22] LABS: ALBUMIN 3.4 g/dL (3.4-5.0); CALCIUM 8.7 mg/dL (8.5-10.1); CREATININE 0.8 mg/dL (0.6-1.0); POTASSIUM 4.6 mmol/L (3.5-5.1); TOTAL BILIRUBIN 0.4 mg/dL (<0.1-1.0); TOTAL PROTEIN 7.1 g/dL (6.4-8.2)
[2017-11-20 15:46] LABS: BE(vivo) -2.1 mmol/L (-2 to +3); HCO3 23.2 mmol/L (22.0-26.0); PCO2 41.6 mmHg (35.0-45.0); PO2 130.8 mmHg (80.0-100.0); pH 7.364 (7.360-7.450); sO2 98.5 % (92.0-98.0)
[2017-11-20 16:54] VITALS: BP 109/75
[2017-11-20 18:36] VITALS: BP 149/90
[2017-11-20 18:38] VITALS: BP 149/90
[2017-11-20 19:38] VITALS: BP 134/70
[2017-11-20 19:47] VITALS: BP 134/70
[2017-11-21 04:08] VITALS: BP 138/86
[2017-11-21 08:00] VITALS: BP 133/84
[2017-11-21 11:27] VITALS: BP 133/84
[2017-11-21 15:12] VITALS: BP 152/91
[2017-11-21 19:51] VITALS: BP 116/65
[2017-11-22 05:04] VITALS: BP 124/74
[2017-11-22 07:30] VITALS: BP 132/85
[2017-11-22 15:50] VITALS: BP 138/56
[2017-11-22 19:17] VITALS: BP 171/75
[2017-11-23 03:33] VITALS: BP 102/64
[2017-11-23 10:00] VITALS: BP 144/75
[2017-11-23 16:00] VITALS: BP 152/77
[2017-11-23 20:00] VITALS: BP 117/92
[2017-11-24 04:15] VITALS: BP 127/85
[2017-11-24 09:14] VITALS: BP 149/89
[2017-11-24 16:37] VITALS: BP 130/83
[2017-11-24 20:20] VITALS: BP 144/78
[2017-11-25 04:02] VITALS: BP 134/75
[2017-11-25 08:00] VITALS: BP 124/68
[2017-11-25 16:00] VITALS: BP 136/79
[2017-11-25 20:52] VITALS: BP 100/66
[2017-11-26 03:14] VITALS: BP 119/72
[2017-11-26 04:42] VITALS: BP 119/72
[2017-11-26 11:11] LABS: BE(vivo) 0.8 mmol/L (-2 to +3); HCO3 26.8 mmol/L (22.0-26.0); PCO2 48.9 mmHg (35.0-45.0); PO2 106.4 mmHg (80.0-100.0); pH 7.356 (7.360-7.450); sO2 97.6 % (92.0-98.0)
[2017-11-26 11:40] LABS: HEMATOCRIT 26.4 % (37.0-47.0); HEMOGLOBIN 8.8 gm/dL (12.0-15.0); MCH 29.8 pg (26.0-34.0); MCHC 33.4 g/dL (28.0-37.0); MCV 89.2 fL (80.0-100.0); RBC 2.96 mil/uL (4.20-5.00); RDW 14.5 % (10.5-14.5); WBC 12.4 thou/uL (4.0-11.0)
[2017-11-26 11:47] LABS: CALCIUM 8.4 mg/dL (8.5-10.1); POTASSIUM 4.4 mmol/L (3.5-5.1)
[2017-11-26 16:11] VITALS: BP 155/49
[2017-11-26 20:00] VITALS: BP 136/54
[2017-11-27] VITALS (28 sets, daily range): BP systolic 78–141; BP diastolic 50–94
[2017-11-28] VITALS (16 sets, daily range): BP systolic 91–142; BP diastolic 62–95
[2017-11-28 05:00] LABS: CALCIUM 8.3 mg/dL (8.5-10.1); CREATININE 1.6 mg/dL (0.6-1.0); POTASSIUM 4.7 mmol/L (3.5-5.1)
[2017-11-28 05:24] LABS: HEMATOCRIT 22.6 % (37.0-47.0); HEMOGLOBIN 7.7 gm/dL (12.0-15.0); MCH 30.7 pg (26.0-34.0); MCHC 34.2 g/dL (28.0-37.0); MCV 89.7 fL (80.0-100.0); RBC 2.52 mil/uL (4.20-5.00); RDW 14.7 % (10.5-14.5)
[2017-11-29 04:03] VITALS: BP 153/81
[2017-11-29 19:53] VITALS: BP 130/67
[2017-11-30 04:50] VITALS: BP 146/75
[2017-11-30 08:02] VITALS: BP 160/76
[2017-11-30] MEDS ORDERED: CLARITHROMYCIN250 M2 PO (09:05)
[2017-11-30] MEDS ORDERED: CEFDINIR300 MG PO (09:05)
[2017-11-30] MEDS ORDERED: CARDIZEM CD120 MG PO (09:06)
[2017-11-30] MEDS ORDERED: HYDROCODON-ACE1 EAC7 PO (09:06)
[2017-11-30] MEDS ORDERED: BUSPIRONE HCL10 MG PO (09:07)
[2017-11-30] MEDS ORDERED: LYRICA 50 MG50 MG PO (09:07)
[2017-11-30] MEDS ORDERED: PREDNISONE 20 M20 M1 PO (09:08)
== END 2017-11-30 14:46 | disposition home or self-care (01) | DRG 177 ==
LOC: 4W 12:59 → ICU 11-27 00:06 → 4E 11-28 17:58
PROVIDERS: Internal Medicine Geriatric Medicine; Specialist
DX: A31.0 Pulmonary mycobacterial infection (principal); J96.21 Acute and chronic respiratory failure with hypoxia; G92 Toxic encephalopathy; J44.1 Chronic obstructive pulmonary disease with (acute) exacerbation; M80.022A Age-related osteoporosis with current pathological fracture, left humerus, initial encounter for fracture; F41.9 Anxiety disorder, unspecified; G25.81 Restless legs syndrome; M79.7 Fibromyalgia; I10 Essential (primary) hypertension; J84.10 Pulmonary fibrosis, unspecified; R91.1 Solitary pulmonary nodule; H91.90 Unspecified hearing loss, unspecified ear; T40.4X5A Adverse effect of other synthetic narcotics, initial encounter; K21.9 Gastro-esophageal reflux disease without esophagitis; W01.0XXA Fall on same level from slipping, tripping and stumbling without subsequent striking against object, initial encounter; Y93.89 Activity, other specified; Y92.230 Patient room in hospital as the place of occurrence of the external cause; Y99.8 Other external cause status; Z87.891 Personal history of nicotine dependence; Z90.710 Acquired absence of both cervix and uterus; Y92.89 Other specified places as the place of occurrence of the external cause; Z79.51 Long term (current) use of inhaled steroids; Z79.899 Other long term (current) drug therapy; Z88.1 Allergy status to other antibiotic agents; Z91.040 Latex allergy status
CPT/HCPCS: 10045; 10078; 10783

== ENCOUNTER → 2018-01-04 | Outpatient (CLI) | payer OTHER ==
[~2018-01-04] MED LIST changes: +BUSPIRONE HCL10 MG PO; +CEFDINIR300 MG PO; +LYRICA 50 MG50 MG PO
== END ==
LOC: CAT 09:53
DX: J43.9 Emphysema, unspecified (principal); R91.1 Solitary pulmonary nodule

== ENCOUNTER → 2018-02-15 | Outpatient (CLI) | payer OTHER | LOC: PET 09:23 | DX: R91.1 Solitary pulmonary nodule (principal); R91.8 Other nonspecific abnormal finding of lung field; I10 Essential (primary) hypertension; J44.9 Chronic obstructive pulmonary disease, unspecified; Z87.891 Personal history of nicotine dependence ==

== ENCOUNTER 2018-02-23 11:24 | Inpatient (IN) | payer OTHER ==
[~2018-02-23] VITALS: Ht 152.4 cm; Wt 49.8 kg
--- NOTE | ~2018-02-23 | H ---
[facility] [place] [address] HISTORY AND PHYSICAL Name: DEYANIRA BAILEY Room #: 421-P ADM IN M.R.#: [id number] Admission: 02/23/18 Attend Phys: Wm Eddy Discharge: Date of : 57 Report #: [id number] THIS REPORT FOR: //name// CC: Adrian Mei DATE OF SERVICE: 02/23/2018 HISTORY OF PRESENT ILLNESS: This is a patient well known to our service with COPD and acute exacerbation. This patient comes in with worsening shortness of breath and wheezing which she could not control at home and she was subsequently admitted. No fevers, chills or sweats. No other symptoms to suggest cardiac involvement or pulmonary embolism. PAST MEDICAL HISTORY: Noteworthy for a longstanding history of smoking and fibromyalgia. She has Mycobacterium avium intracellulare. She has underlying pulmonary fibrosis and degenerative arthritis. She has had a previous hysterectomy, fracture of the humerus a few months ago on the left. MEDICATION LIST: Includes ethambutol, lisinopril, albuterol, fluconazole or Advair, prednisone 5 mg a day, Lyrica, trazodone, Requip, Mucinex, aerosolized albuterol, Cymbalta and Spiriva. ALLERGIES: LEVOFLOXACIN. FAMILY HISTORY: Noncontributory. SOCIAL HISTORY: She still smokes some. No alcohol use of any significance. She is . REVIEW OF SYSTEMS: Otherwise negative. PHYSICAL EXAMINATION: GENERAL: Shows her lying in bed. She is on oxygen. She is in no distress. HEENT: Otherwise negative. NECK: Supple without thyromegaly or adenopathy. CHEST: Showed end-expiratory wheezing. CARDIOVASCULAR: Shows a regular rate and rhythm without murmur. ABDOMEN: Soft and nontender without hepatosplenomegaly. EXTREMITIES: No cyanosis, clubbing or edema. NEUROLOGIC: Nonfocal. ASSESSMENT AND PLAN: This is a patient with terminal chronic obstructive [facility] [address] [place] [address] HISTORY AND PHYSICAL Name: DEYANIRA BAILEY Room #: 421-P [facility] IN [facility]#: [id number] Admission: 02/23/18 Attend Phys: Wm Eddy Discharge: Date of : 57 Report #: [id number] pulmonary disease and Mycobacterium Avium complex, who is in need of inpatient pulmonary toilet. By: 1030 1039 Adrian Mei MD /nt
--- NOTE | ~2018-02-23 | D ---
[facility] [place] [address] DISCHARGE SUMMARY Name: DEYANIRA BAILEY Room #: 421-P ADM IN M.R.#: [id number] Admission: 02/23/18 Attend Phys: Wm Eddy Discharge: Date of : 57 Report #: [id number] THIS REPORT FOR: //name// CC: Adrian Mei FINAL DIAGNOSES: 1. Chronic obstructive pulmonary disease exacerbation. 2. Mycobacterium avium complex pulmonary infection. 3. Right pulmonary nodule. 4. Hypertension. 5. Fibromyalgia. HOSPITAL COURSE: The patient was admitted with shortness of breath. She was treated for COPD exacerbation. Usual antibiotics were continued and main treatment was the steroid burst with nebulized treatments. Pulmonary followed her. She has a known right pulmonary nodule seen on PET scan as an outpatient recently. The plan is to consider workup and biopsy options as an outpatient once her current status stabilizes. Otherwise usual medications were continued including her oral antibiotics. She had no other interval complication. PHYSICAL EXAMINATION: GENERAL: On the day of discharge, she was awake and alert, in no distress with stable vital signs, including her baseline oxygen at 3 liters nasal cannula. She was up and walking in her room independently. LUNGS: Had scattered wheezing. HEART: Regular. ABDOMEN: Soft, normoactive bowel sounds. EXTREMITIES: No edema. DISPOSITION: She is discharged to home with diet and activity as tolerated, resume all usual medications with a slow prednisone taper. Follow up with Dr. Mei in a week or [address] Cosme in Pulmonary for consideration of biopsy options. By: 1013 1045 Pablito Nam MD /nt
--- NOTE | ~2018-02-23 | EKG ---
[address] [place] [address] ELECTROCARDIOGRAM REPORT Name: DEYANIRA BAILEY Room #: 421-P ADM IN M.R.#: [id number] Admission: 02/23/18 Attend Phys: Wm Eddy Discharge: Date of : 57 Report #: [id number] THIS REPORT FOR: //name// [facility] ED Test Date: 2018-02-23 Test Time: 12:30:25 Pat Name: DEYANIRA BAILEY Department: Room: [facility] Gender: F Ui Designer: Lew DUDLEY : 1955 Requested By: Jimmy Smart Order Number: [id number] MD: Terry Roque Measurements Intervals [place] Rate: 95 P: 88 SD: 140 QRS: 73 QRSD: 84 T: 72 QT: 356 QTc: 448 Interpretive Statements Sinus rhythm Baseline wander in lead(s) V2,V5 Compared to ECG 11/12/2016 07:43:34 T-wave abnormality no longer present Electronically Signed On 02-24-2018 11:02:20 CDT by Terry Roque [email or web address] <ELECTRONICALLY SIGNED> By: Terry Roque MD 02/24/18 1102 1230 1230 Terry Roque MD /EPI
--- NOTE | ~2018-02-23 | HC ---
[facility] [place] [address] CONSULTATION Name: DEYANIRA BAILEY Room #: 421-P [facility] IN M.R.#: [id number] Admission: 02/23/18 Attend Phys: Wm Eddy Discharge: 02/26/18 Date of : 57 Report #: [id number] THIS REPORT FOR: //name// CC: Eugenio Bartlett DR. DATE OF SERVICE: 02/23/2018 REFERRING PROVIDER: Dr. Eugenio Mei. REASON FOR CONSULTATION: Shortness of breath. HISTORY OF PRESENT ILLNESS: Our group was asked to see the patient in consultation while hospitalized at [facility]. A 62-year-old woman, known to our group for severe COPD, pulmonary nodule, currently under further evaluation for possible malignancy, a known history of Mycobacterium avium complex, significant disease in the predominantly left upper lobe, on 3-drug therapy, had been noticing about 7 days' worth of increasing shortness of breath, wheezing. No significant productive cough, no nocturnal dyspnea. Dyspnea is severe, now she cannot even ambulate 10 feet. No fevers, chills or sweats, some chest tightness noted. The patient remains on 5 mg daily of prednisone and had been doing nebulized treatments 4 times daily. The patient also had had some minor cigarette use recently, previously quitting about 9 months ago from long-term tobacco use. The patient has some mild nausea, but no vomiting, no abdominal pain. Denies any chest pain. No recent travel. No prior history of venous thromboembolism. ALLERGIES: INCLUDE LEVAQUIN. PAST MEDICAL HISTORY: 1. Severe COPD. 2. History of Mycobacterium avium pulmonary disease. 3. Emphysema. 4. Pulmonary nodule. 5. History of tobacco abuse. 6. Fibromyalgia. 7. Hypertension. 8. History of diverticulosis. 9. Chronic back pain with radiculopathy. 10. Gastroesophageal reflux disease. 11. Anxiety disorder. 12. History of nephrolithiasis. 13. Restless leg syndrome. 14. Chronic fatigue. [facility] [address] [place] [address] CONSULTATION Name: DAILYQUEDEYANIRA Ole Room #: 421-P [facility] IN M.R.#: [id number] Admission: 02/23/18 Attend Phys: Wm Eddy Discharge: 02/26/18 Date of : 57 Report #: [id number] PAST SURGICAL HISTORY: Includes hysterectomy, tonsillectomy and tongue surgery. FAMILY HISTORY: Father's history is unknown. Mother of pneumonia and COPD. Maternal aunt with lung cancer. SOCIAL HISTORY: Some off and on smoking use recently with a long-term tobacco history. No significant alcohol consumption. REVIEW OF SYSTEMS: CONSTITUTIONAL: No fever, chills or sweats. No change in weight or appetite. ENT: No upper respiratory congestion, rhinorrhea or dysphagia. CARDIOVASCULAR: No chest pains or palpitations. GASTROINTESTINAL: No nausea, vomiting, diarrhea, constipation or abdominal pain. GENITOURINARY: No dysuria or urinary frequency. INTEGUMENT: Denies any rash. MUSCULOSKELETAL: No joint pains or swelling. Rest of 12-point review of systems is negative. PHYSICAL EXAMINATION: VITAL SIGNS: Afebrile, pulse 100-110 and regular, respiratory rate 16, blood pressure 148/74, oxygen saturation 95% on 3 liters nasal cannula. GENERAL: This is a thin, middle-aged woman, in no significant distress. HEENT: Clear oropharynx. No thrush. NECK: Supple, no lymphadenopathy. LUNGS: Diminished, prolonged expiratory phase with diffuse wheezes. CARDIOVASCULAR: Heart regular, but tachycardic. No murmurs. ABDOMEN: Soft, nontender, no mass, no hepatosplenomegaly. EXTREMITIES: Without edema. INTEGUMENT: Without rash. LABORATORY DATA: White blood cell count 2.5 thousand, hemoglobin 11, hematocrit 33, platelet count 281. Sodium 128, potassium 4.0, chloride 95, bicarbonate 29, BUN 6, creatinine 0.7, glucose 111. Troponin less than 0.06. IMPRESSION: 1. Chronic obstructive pulmonary disease with acute exacerbation. 2. History of Mycobacterium avium complex. 3. Pulmonary nodule of unclear significance and potentially malignant. 4. Leukopenia. 5. Hyponatremia. SUGGESTIONS: 1. Consider CT chest PE protocol if not improving with additional therapy for COPD. 2. Systemic steroids with taper. [address] [address] CONSULTATION Name: DEYANIRA BAILEY Room #: 421-P DIS IN M.R.#: [id number] Admission: 02/23/18 Attend Phys: Wm Eddy Discharge: 02/26/18 Date of : 57 Report #: [id number] 3. Frequent bronchodilators. 4. Review PET imaging and prior imaging studies. 5. Follow up electrolyte abnormalities. 6. No change in antimicrobial therapy. Continue therapy for Mycobacterium avium complex disease. We will continue to follow. Thank you for requesting our suggestions. <ELECTRONICALLY SIGNED> By: Norris Chapa MD 02/27/18 1200 2027 1719 Norris Chapa MD /nt
[2018-02-23 11:27] VITALS: BP 101/69
[2018-02-23 12:13] LABS: HEMATOCRIT 32.6 % (37.0-47.0); HEMOGLOBIN 11.1 gm/dL (12.0-15.0); MCH 30.2 pg (26.0-34.0); MCV 88.9 fL (80.0-100.0); RBC 3.66 mil/uL (4.20-5.00); RDW 13.8 % (10.5-14.5); WBC 2.5 thou/uL (4.0-11.0)
[2018-02-23 12:22] LABS: ANION GAP 4 mmol/L (7-16); BUN 6 mg/dL (7-18); CALCIUM 8.9 mg/dL (8.5-10.1); CHLORIDE 95 mmol/L (98-107); CO2 29 mmol/L (21-32); CREATININE 0.7 mg/dL (0.6-1.0); GLUCOSE 111 mg/dL (74-106); SODIUM 128 mmol/L (136-145)
[2018-02-23 12:31] LABS: TROPONIN-I <0.06 ng/mL (<0.06)
[2018-02-23 14:13] VITALS: BP 110/64
[2018-02-23 14:32] VITALS: BP 114/66
[2018-02-23 14:51] VITALS: BP 144/75
[2018-02-23] MEDS ORDERED: PREDNISONE 5 MG5 M1 PO (15:34)
[2018-02-23 19:48] VITALS: BP 148/74
[2018-02-24] MEDS ORDERED: LYRICA 50 MG50 MG PO (01:41)
[2018-02-24] MEDS ORDERED: TRAZODONE HCL50 MG PO (01:44)
[2018-02-24] MEDS ORDERED: REQUIP0.5 MG PO (01:45)
[2018-02-24] MEDS ORDERED: MUCINEX600 MG PO (01:49)
[2018-02-24 07:10] VITALS: BP 133/70
[2018-02-24 15:18] VITALS: BP 108/70
[2018-02-24 21:00] VITALS: BP 134/64
[2018-02-25 07:02] VITALS: BP 126/64
[2018-02-25 15:25] VITALS: BP 145/70
[2018-02-25 19:20] VITALS: BP 127/76
[2018-02-26 09:05] VITALS: BP 147/72
[2018-02-26] MEDS ORDERED: PREDNISONE 20 M20 M1 PO (09:16)
[2018-02-26 11:16] VITALS: BP 147/72
== END 2018-02-26 12:19 | disposition home or self-care (01) | DRG 178 ==
LOC: ER 11:24 → EROBS 13:45 → 4E 13:45 → ENTRNSPT 02-26 12:07 → EDTRNSPTSTS 02-26 12:10 → 4E 02-26 12:19
PROVIDERS: Emergency Medicine
DX: A31.0 Pulmonary mycobacterial infection (principal); J44.1 Chronic obstructive pulmonary disease with (acute) exacerbation; J96.11 Chronic respiratory failure with hypoxia; E87.1 Hypo-osmolality and hyponatremia; M79.7 Fibromyalgia; I10 Essential (primary) hypertension; M19.90 Unspecified osteoarthritis, unspecified site; G25.81 Restless legs syndrome; D72.819 Decreased white blood cell count, unspecified; F17.210 Nicotine dependence, cigarettes, uncomplicated; R91.1 Solitary pulmonary nodule; F41.9 Anxiety disorder, unspecified; K57.90 Diverticulosis of intestine, part unspecified, without perforation or abscess without bleeding; K21.9 Gastro-esophageal reflux disease without esophagitis; Z87.81 Personal history of (healed) traumatic fracture; Z87.442 Personal history of urinary calculi; Z90.710 Acquired absence of both cervix and uterus; Z79.51 Long term (current) use of inhaled steroids; Z79.899 Other long term (current) drug therapy; Z88.1 Allergy status to other antibiotic agents; Z91.040 Latex allergy status; Z82.5 Family history of asthma and other chronic lower respiratory diseases; Z80.1 Family history of malignant neoplasm of trachea, bronchus and lung
CPT/HCPCS: 10084

== ENCOUNTER 2018-04-15 16:06 | Inpatient (IN) | payer OTHER ==
[~2018-04-15] VITALS: Ht 152.4 cm; Wt 51.8 kg
--- NOTE | ~2018-04-15 | HC ---
[facility] [place] [address] CONSULTATION Name: DEYANIRA BAILEY Room #: 452-P ADM IN M.R.#: [id number] Admission: 04/15/18 Attend Phys: Wm Eddy Discharge: Date of : 57 Report #: [id number] THIS REPORT FOR: //name// CC: Adrian Mei DATE OF SERVICE: 04/18/2018 TYPE OF REPORT: Infectious disease consultation. REASON FOR CONSULTATION: I was asked to evaluate concerning Mycobacterium avium complex infection in the setting of advanced COPD and bronchiectasis. Presents now with an exacerbation of her COPD. HISTORY OF PRESENT ILLNESS: Over the last 2 weeks, the patient has had increasing cough and sputum production. Her developed a lower respiratory tract infection prior to this. Other members of the family also developed respiratory symptoms. She has had no fever, chills or sweats. She has had purulent sputum production and occasional hemoptysis. She presents to the hospital for further treatment. Chest x-ray shows no acute pulmonary infiltrate. She does have persistent changes with left upper lobe disease as well as a right lower lobe nodule that has been followed. She had imaging studies including CT scan, which showed a mild increase in the right lower lobe, pleural based nodule. It is 1.1 x 0.9 cm. She was supposed to have a PET scan recently, I have been unable to obtain that record. She has been followed by Pulmonary Medicine. As far as her Mycobacterium avium complex, has gone. She developed increased infiltrates. Sputum culture and bronchoscopy cultures over the last several years have identified Mycobacterium avium complex. First culture was positive in June of 2014. Subsequent to that, she has had recurring positive cultures. Had difficulty tolerating her medication program at the start. Took over a year to get her on therapy. It has been over approximately a year and a half. She has been on her combination treatment where she has tolerated it reasonably well. This has included clarithromycin, ethambutol and rifabutin. She has had two sensitivity test reports, first one in 2015 where she had organism sensitive to clarithromycin, [place] of 2, ethambutol was at 16, rifampin was a greater than 8, Cipro was at 16 and moxifloxacin was at 2. This was repeated on 11/23/2017 where clarithromycin again was sensitive. Other sensitivity reports were approximately the same with ethambutol greater than 16, rifampin greater than 8, ciprofloxacin 16, Zyvox 16 and moxifloxacin 2. She has had trial of quinolone for her treatment but has developed tendinitis while on this. We did not go to Zyvox due to her previous intolerance of other medications with other GI upset. Further evaluation has included fungal serology tests and cultures, which have been negative. Her initial immunoglobulin level in 2012 was 342. This was repeated and was 542. Because of this level that was just mildly low, no further intervention was recommended. [address] [address] CONSULTATION Name: DEYANIRA BAILEY Ole Room #: 452-P [facility] IN M.R.#: [id number] Admission: 04/15/18 Attend Phys: Wm Eddy Discharge: Date of : 57 Report #: [id number] ALLERGIES: LATEX and LEVAQUIN. MEDICATIONS: As noted on her SEP, now including ceftriaxone in addition to her MAC treatment. PAST MEDICAL HISTORY: COPD, bronchiectasis, Mycobacterium avium complex, pulmonary infection, right lower lobe pulmonary nodule, indeterminate fibromyalgia, chronic back pain, gastroesophageal reflux, anxiety, nephrolithiasis, hypertension, restless leg syndrome, chronic pain syndrome, hypothyroidism, coronary artery disease and hysterectomy. FAMILY HISTORY: Noncontributory. SOCIAL HISTORY: Long-term smoker, has been off cigarettes for several months now. No significant alcohol intake. REVIEW OF SYSTEMS: CONSTITUTIONAL: She has been on and off corticosteroids and has remained cushingoid. No documented fever, chills or sweats. HEENT: No change in her vision. No oral lesions. PULMONARY: As above. CARDIOVASCULAR: Negative. GASTROINTESTINAL: Negative. GENITOURINARY: Negative. JOINTS: Chronic myalgias and arthralgias. Chronic back pain. This has been unchanged. NEUROLOGICAL: Negative. PSYCHIATRIC: Anxiety under reasonable control. SKIN: Without lesion. LYMPHATIC: Negative. PHYSICAL EXAMINATION: VITAL SIGNS: Afebrile and hemodynamically stable. GENERAL: She is alert and cooperative, in no acute distress, lying in bed, although she did have loose minimally productive cough. She was on oxygen per nasal cannula. She was cushingoid. HEENT: No scleral icterus or conjunctivitis. No oral lesions or mucositis. NECK: Supple. LUNGS: Bilateral wheezes. No consolidation. HEART: Regular, without murmur, gallop or rub. ABDOMEN: Soft and nontender. No hepatosplenomegaly or mass. SKIN: Without lesion. LYMPHATIC: No palpable adenopathy. EXTREMITIES: Without cyanosis or peripheral edema. NEUROLOGICAL: The cranial nerves intact. Strength in her extremities was [facility] [address] [place] [address] CONSULTATION Name: DEYANIRA BAILEY Room #: 452-P ADM IN M.R.#: [id number] Admission: 04/15/18 Attend Phys: Wm Eddy Discharge: Date of : 57 Report #: [id number] unremarkable. Sensation intact. Mood normal. RADIOLOGICAL DATA: Chest x-ray showed emphysema and left upper lobe scarring. CT scan showed right lower lobe nodule 1.1 x 0.9 cm, which was pleural based. She had upper lobe changes as well, which appeared more chronic. LABORATORY DATA: BNP 167. Sputum culture pending. Hemoglobin 10.7; platelet count 417,000 and WBC 8.9. Creatinine 0.7. Liver function tests normal. IMPRESSION: 1. Chronic obstructive pulmonary disease exacerbation with bronchitis, exacerbation of her bronchiectasis. 2. Mycobacterium avium complex infection. 3. Advanced chronic obstructive pulmonary disease. 4. Bronchiectasis. 5. Chronic steroid use. 6. Fibromyalgia with chronic pain syndrome. 7. Anxiety. RECOMMENDATIONS: We will continue current antibiotic program. We will repeat immunoglobulin levels. We will obtain PET scan report and discuss further with Pulmonary Medicine. I am not inclined to repeat bronchoscopy at this point. Her previous bronchoscopies have had negative cytology. I would like to see her PET scan and decide if we should pursue transthoracic biopsy of the right lower lobe lesion. If there is evidence of cancer there that would definitely change our approach to her care. I have been concerned about her Mycobacterium persistence. I am suspecting that she does take her drugs. May need to obtain serum levels to ensure adequate absorption. We will fairly limited as to treatment options for her due to her intolerances. If her right lower lobe lesion is noncancerous, I would then consider attempting a change in her antibiotic program. May also consider referral to [facility] for their recommendations. <ELECTRONICALLY SIGNED> By: Dash Mei MD 04/19/18 0753 14 0113 Dash Mei MD /nt
--- NOTE | ~2018-04-15 | H ---
[facility] [place] [address] HISTORY AND PHYSICAL Name: DEYANIRA BAILEY Room #: 452-P ADM IN M.R.#: [id number] Admission: 04/15/18 Attend Phys: Wm Eddy Discharge: Date of : 57 Report #: [id number] THIS REPORT FOR: //name// CC: Adrian Mei DATE OF SERVICE: 04/15/2018 CHIEF COMPLAINT: Shortness of breath. HISTORY OF PRESENT ILLNESS: The patient was admitted from the office with increasing shortness of breath, cough and congestion. She has a long-standing history of COPD mediated from smoking with emphysema and bronchiectasis related to chronic MAC pulmonary infection. She has had multiple hospitalizations over the last several years for recurrent pulmonary issues. At times, she has had hypercapnic failure, requiring BiPAP use, but in the recent months, mainly centers on exacerbation of COPD and bronchiectasis. She just reported more wheezing, shortness of breath and congested cough in the last several days. PAST MEDICAL HISTORY: COPD, O2 dependent; MAC pulmonary infection; emphysema; bronchiectasis; hypertension and chronic pain. PAST SURGICAL HISTORY: Unknown. FAMILY HISTORY: Noncontributory. SOCIAL HISTORY: A [id number] history of smoking, but claims that she stopped smoking a year ago. No chronic alcohol use. ALLERGIES: LEVAQUIN. MEDICATIONS: Cefuroxime, ethambutol 800 mg daily, rifabutin 150 mg daily, Spiriva, DuoNebs, albuterol inhaler, lisinopril 20 mg, hydrocodone 10 mg q. 4 hours p.r.n. pain, Lyrica 250 mg b.i.d., Cymbalta 60 mg, trazodone 75 mg at bedtime, Xanax 0.25 mg q. 6 hours p.r.n., Requip 0.5 mg at bedtime, Tessalon, Advair, Mucinex, MiraLax and prednisone. REVIEW OF SYSTEMS: She denies headache, chest pain, abdominal pain, nausea, vomiting, diarrhea, constipation, dysuria or syncope. PHYSICAL EXAMINATION: VITAL SIGNS: Temperature 36.4, pulse 91, respirations 20, blood pressure 132/72 and O2 sat 100% on 4 liters of oxygen. GENERAL: She is awake and alert, in no distress. HEAD AND NECK: Unremarkable. LUNGS: Have expiratory wheezing, especially the left upper lobe. HEART: Regular. [facility] [address] [place] [address] HISTORY AND PHYSICAL Name: DEYANIRA BAILEY Room #: 452-P ADM IN .R.#: [id number] Admission: 04/15/18 Attend Phys: Wm Eddy Discharge: Date of : 57 Report #: [id number] ABDOMEN: Soft. Normoactive bowel sounds. EXTREMITIES: No edema. NEUROLOGIC: Motor strength 4/5 throughout. ASSESSMENT: 1. Chronic obstructive pulmonary disease exacerbation. 2. Chronic Mycobacterium avium pulmonary infection. 3. Emphysema. 4. Hypertension. 5. Chronic back pain syndrome. PLAN: In regards to her usual medicines, I will add IV Rocephin, IV steroids and pulmonary treatments. She has responded to this treatment in the past. <ELECTRONICALLY SIGNED> By: Pablito Nam MD 04/17/18 1239 1026 1129 Pablito Nam MD /nt
--- NOTE | ~2018-04-15 | D ---
[facility] [place] [address] DISCHARGE SUMMARY Name: DEYANIRA BAILEY Room #: 452-P DIS IN M.R.#: [id number] Admission: 04/15/18 Attend Phys: Wm Eddy Discharge: 04/22/18 Date of : 57 Report #: [id number] THIS REPORT FOR: //name// CC: Adrian Mei DATE OF SERVICE: 04/22/2018 FINAL DIAGNOSES: 1. Chronic obstructive pulmonary disease exacerbation. 2. Chronic bronchiectasis. 3. Pulmonary nodule. 4. Emphysema. 5. Acute bronchitis due to Stenotrophomonas. HOSPITAL COURSE: The patient was admitted with shortness of breath and treated for COPD exacerbation with IV antibiotics, steroids, and pulmonary treatments. She is followed by the Pulmonary and ID service. She did have some complaints of hemoptysis. They felt it was related to Lovenox, which was discontinued. Sputum culture grew Stenotrophomonas maltophilia. Antibiotics were adjusted accordingly. CT revealed a small right pleural based nodule. Radiology felt this was slightly larger from a few months ago. Pulmonary recommended outpatient followup with a CT and consideration of some genetic markers. She would be at high risk for open lung biopsy and her treatment options, due to her severe emphysema, would be limited. If this proved to be malignant at this time, the plan was to take a conservative approach and discuss further outpatient options with lab and imaging. Otherwise, she had no other interval complication. However, her wheezing and congested cough was slow to improve. She was still requiring IV steroids and relatively high flow oxygen of 4-5 liters nasal cannula. The plan was to transfer to an LTAC facility for continued pulmonary care physician oversight and IV steroids. DISPOSITION: She is transferring to [facility] under the care of Dr. Eugenio Mei. I have signed her transfer medications, orders, diet, activity and pulmonary treatments. <ELECTRONICALLY SIGNED> By: Pablito Nam MD 05/02/18 1058 0942 1508 Pablito Nam MD /nt
[~2018-04-15 16:06] MED LIST changes: +BENZONATATE100 MG PO; +MYAMBUTOL 400400 M1 PO; +XANAX 0.25 MG0.25 MG PO
[2018-04-15] MEDS ORDERED: PREDNISONE 10 M10 MG PO (17:01)
[2018-04-15 19:07] LABS: ABSOLUTE NEUTROPHILS 3.2 thou/uL (1.4-8.2); BASOPHILS 1.4 % (0.0-2.0); EOSINOPHILS 5.4 % (0.0-3.0); HEMATOCRIT 34.2 % (37.0-47.0); HEMOGLOBIN 11.7 gm/dL (12.0-15.0); LYMPHOCYTES 22.4 % (24.0-44.0); MCH 30.3 pg (26.0-34.0); MCHC 34.3 g/dL (28.0-37.0); MCV 88.2 fL (80.0-100.0); MONOCYTES 11.2 % (1.0-8.0); PLATELET COUNT 389 thou/uL (150-400); POLYS 59.6 % (36.0-66.0); RBC 3.87 mil/uL (4.20-5.00); RDW 14.4 % (10.5-14.5); WBC 5.4 thou/uL (4.0-11.0)
[2018-04-15 19:19] LABS: ALBUMIN 3.4 g/dL (3.4-5.0); CALCIUM 9.5 mg/dL (8.5-10.1); CREATININE 0.9 mg/dL (0.6-1.0); POTASSIUM 3.8 mmol/L (3.5-5.1); TOTAL BILIRUBIN 0.4 mg/dL (<0.1-1.0); TOTAL PROTEIN 7.3 g/dL (6.4-8.2)
[2018-04-15 19:30] VITALS: BP 123/69
[2018-04-15] MEDS ORDERED: HYDROCODON-ACE1 EAC5 PO (19:39)
[2018-04-15 23:41] VITALS: BP 96/51
[2018-04-16 03:30] VITALS: BP 129/57
[2018-04-16 08:00] VITALS: BP 132/72
[2018-04-16 15:46] VITALS: BP 117/75
[2018-04-16 19:21] VITALS: BP 130/68
[2018-04-17 03:29] VITALS: BP 147/66
[2018-04-17 08:00] VITALS: BP 143/66
[2018-04-17 15:36] VITALS: BP 162/72
[2018-04-17 19:10] VITALS: BP 136/53
[2018-04-18 03:10] VITALS: BP 129/47
[2018-04-18 06:19] LABS: HEMATOCRIT 31.2 % (37.0-47.0); HEMOGLOBIN 10.7 gm/dL (12.0-15.0); MCHC 34.3 g/dL (28.0-37.0); MCV 87.5 fL (80.0-100.0); RBC 3.56 mil/uL (4.20-5.00); WBC 8.9 thou/uL (4.0-11.0)
[2018-04-18 06:25] LABS: CALCIUM 9.2 mg/dL (8.5-10.1); CREATININE 0.7 mg/dL (0.6-1.0); POTASSIUM 4.2 mmol/L (3.5-5.1)
[2018-04-18 07:43] VITALS: BP 144/89
[2018-04-18 15:20] VITALS: BP 119/72
[2018-04-18 19:36] VITALS: BP 129/71
[2018-04-19 07:14] LABS: CALCIUM 8.8 mg/dL (8.5-10.1); CREATININE 0.7 mg/dL (0.6-1.0); POTASSIUM 4.5 mmol/L (3.5-5.1)
[2018-04-19 08:00] VITALS: BP 146/72
[2018-04-19 19:07] LABS: IgA 131 mg/dL (87-352); IgG 599 mg/dL (700-1600); IgM 67 mg/dL (26-217)
[2018-04-19 19:22] VITALS: BP 139/70
[2018-04-20 07:30] VITALS: BP 133/66
[2018-04-20 19:35] VITALS: BP 114/72
[2018-04-21 05:42] LABS: HEMATOCRIT 30.8 % (37.0-47.0); HEMOGLOBIN 10.5 gm/dL (12.0-15.0); MCH 30.4 pg (26.0-34.0); MCHC 34.3 g/dL (28.0-37.0); MCV 88.5 fL (80.0-100.0); RBC 3.47 mil/uL (4.20-5.00); RDW 14.3 % (10.5-14.5)
[2018-04-21 05:53] LABS: CALCIUM 8.7 mg/dL (8.5-10.1); CREATININE 0.8 mg/dL (0.6-1.0); POTASSIUM 4.2 mmol/L (3.5-5.1)
[2018-04-21 07:25] VITALS: BP 116/62
[2018-04-21 19:44] VITALS: BP 146/72
[2018-04-22 07:22] VITALS: BP 156/98
[2018-04-22] MEDS ORDERED: CLARITHROMYCIN250 M2 PO (12:25)
[2018-04-22] MEDS ORDERED: BACTRIM DS TAB1 EACH PO (12:25)
[2018-04-22] MEDS ORDERED: IPRAT-ALBUT 0.5-3 ML INH ×2 (12:26)
[2018-04-22] MEDS ORDERED: FLUCONAZOLE 10100 MG PO (12:26)
[2018-04-22] MEDS ORDERED: PULMICORT0.5 MG/22 INH (12:27)
[2018-04-22] MEDS ORDERED: LASIX 20 MG TAB20 MG PO (12:27)
[2018-04-22] MEDS ORDERED: SUDOGEST30 MG PO (12:27)
[2018-04-22] MEDS ORDERED: SOLU-MEDRO125 MG/23 IV PUSH (12:28)
[2018-04-22 22:05] LABS: IgG 612 mg/dL (700-1600)
== END 2018-04-22 17:56 | DRG 177 ==
LOC: 4W 16:06
PROVIDERS: Internal Medicine; Internal Medicine Geriatric Medicine; Specialist
PROC: 05H933Z Insertion of Infusion Device into Right Brachial Vein, Percutaneous Approach (ICD-10-PCS; principal; 2018-04-22)
DX: A31.0 Pulmonary mycobacterial infection (principal); J96.21 Acute and chronic respiratory failure with hypoxia; J96.22 Acute and chronic respiratory failure with hypercapnia; J44.1 Chronic obstructive pulmonary disease with (acute) exacerbation; J44.0 Chronic obstructive pulmonary disease with (acute) lower respiratory infection; R04.2 Hemoptysis; J20.8 Acute bronchitis due to other specified organisms; F17.210 Nicotine dependence, cigarettes, uncomplicated; G89.4 Chronic pain syndrome; F41.9 Anxiety disorder, unspecified; M79.7 Fibromyalgia; R91.1 Solitary pulmonary nodule; I10 Essential (primary) hypertension; M54.9 Dorsalgia, unspecified; D89.9 Disorder involving the immune mechanism, unspecified; J45.909 Unspecified asthma, uncomplicated; D64.9 Anemia, unspecified; L29.8 Other pruritus; Z88.8 Allergy status to other drugs, medicaments and biological substances; Z79.899 Other long term (current) drug therapy; Z90.711 Acquired absence of uterus with remaining cervical stump; Z99.81 Dependence on supplemental oxygen; Z91.040 Latex allergy status; Z79.52 Long term (current) use of systemic steroids; Z23 Encounter for immunization
CPT/HCPCS: 10047; 27000

== ENCOUNTER 2018-05-08 14:29 | Inpatient (IN) | payer OTHER ==
[~2018-05-08] VITALS: Ht 152.4 cm; Wt 55.1 kg
--- NOTE | ~2018-05-08 | H ---
[facility] [place] [place] [address] HISTORY AND PHYSICAL Name: DEYANIRA BAILEY Room #: 350-P ADM IN M.R.#: [id number] Admission: 05/08/18 Attend Phys: Wm Eddy Discharge: Date of : 57 Report #: [id number] THIS REPORT FOR: //name// CC: Adrian Mei DATE OF SERVICE: 05/08/2018 CHIEF COMPLAINT: Abdominal pain and abnormal lab work. HISTORY OF PRESENT ILLNESS: The patient is a 63-year-old female with significant lung disease, transferred back from [facility] facility for evaluation of rising creatinine and hyponatremia. She was hospitalized here about a month ago for COPD exacerbation. She has significant lung disease due to prior smoking and I believe there is a degree of emphysema. She also has an unspecified pulmonary nodule, I believe in the right base, and a chronic history of MAC pulmonary infection for which she takes chronic oral suppression. She has had multiple hospitalizations for respiratory exacerbations over the last several years. She is on chronic steroids and O2 at home. She transferred to the [facility] and was receiving usual care. However, in the last several days, she is complaining of some abdominal pain and fullness and a sense of constipation. She is also now describing difficulty urinating. In the last 3 days, her creatinine has risen from normal baseline to 2, to now up to 3.4. Her sodium is now down to 123. Also, of note, a recent sputum culture at the [facility] facility has revealed Pseudomonas, which is sensitive to Zosyn. PAST MEDICAL HISTORY: Hypertension, fibromyalgia, COPD, MAC pulmonary infection, chronic pain syndrome, chronic anxiety. She has had multiple hospitalizations related to her lung disease. She has had acute hypercapnic respiratory failure in the past, requiring BiPAP. PAST SURGICAL HISTORY: Unknown. FAMILY HISTORY: Noncontributory. SOCIAL HISTORY: A 75-[id number]-winr history of smoking. She reports quitting 1-2 years ago. ALLERGIES: LEVAQUIN. MEDICATIONS: Clarithromycin, Bactrim, fluconazole, ethambutol, rifabutin, DuoNeb, Spiriva, pseudoephedrine, lisinopril, hydrocodone, Lyrica, Cymbalta, trazodone, Requip, Lasix, Tessalon, Pulmicort, Mucinex. REVIEW OF SYSTEMS: She denies headache, chest pain, shortness of breath. She complains of constipation, abdominal pain, urinary hesitancy. No myalgias, syncope or fall. [facility] [address] [place] [address] HISTORY AND PHYSICAL Name: DEYANIRA BAILEY Room #: 350-P [facility] IN [facility].#: [id number] Admission: 05/08/18 Attend Phys: Wm Eddy Discharge: Date of : 57 Report #: [id number] PHYSICAL EXAMINATION: VITAL SIGNS: Temperature 36.3, pulse 82, respirations 18, blood pressure 129/65, O2 sat 100% on 4 liters nasal cannula. GENERAL: She is awake and alert. HEAD AND NECK: Unremarkable. LUNGS: Clear. HEART: Regular. ABDOMEN: Protuberant, soft. She is tender in the suprapubic area. Normal bowel sounds. No rebound. EXTREMITIES: No edema. NEUROLOGIC: She is oriented to place, situation, knows me. 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 LABORATORY DATA: Hemoglobin is 9.9. Sodium 123, potassium 5.5, BUN 62, creatinine 3.2. ASSESSMENT: 1. Acute kidney injury. 2. Hyponatremia. 3. Pseudomonas pneumonia. 4. Chronic obstructive pulmonary disease. 5. Mycobacterium avium complex pulmonary infection. 6. Anemia of chronic disease. 7. Abdominal pain. PLAN: She will continue Zosyn for the new culture of pseudomonas in the sputum. X-rays will be obtained. I will ask Pulmonary and ID to see her. She may have a degree of urinary retention which is causing the kidney injury, and ultrasound and bladder scan have been ordered along with renal consultation. <ELECTRONICALLY SIGNED> By: Pablito Nam MD 05/13/18 1222 [id number] 1102 Pablito Nam MD /nt
--- NOTE | ~2018-05-08 | D ---
[facility] [place] [address] [place] [address] DISCHARGE SUMMARY Name: DEYANIRA BAILEY Room #: 350-P [facility] IN M.R.#: [id number] Admission: 05/08/18 Attend Phys: Wm Eddy Discharge: 05/17/18 Date of : 57 Report #: [id number] THIS REPORT FOR: //name// CC: Adrian Mei FINAL DIAGNOSES: 1. Acute kidney injury. 2. Acute urinary retention. 3. Hyperkalemia. 4. Pseudomonas pneumonia. 5. Chronic obstructive pulmonary disease exacerbation. 6. Bronchiectasis. 7. Mycobacterium avium complex pulmonary infection. 8. Hypertension. HOSPITAL COURSE: The patient was admitted back from the LTAC facility with acute kidney injury with creatinine around 3. She is found to have urinary retention requiring placement of Lama catheter. With supportive measures, her potassium, renal function and bladder function all improved and stabilized. Lama catheter was removed. She had a previous sputum culture with Pseudomonas and antibiotics were adjusted accordingly. She was followed by the Pulmonary and ID services. She did require BiPAP for a few nights, but then was declining its use. Otherwise, she continued supportive care. PHYSICAL EXAMINATION: GENERAL: On the day of discharge, she was somnolent, but arousable. VITAL SIGNS: Stable. LUNGS: Had rhonchi and wheezes bilaterally. HEART: Regular. ABDOMEN: Protuberant, soft, normoactive bowel sounds. EXTREMITIES: No edema. She was showing some cushingoid features due to steroids. DISPOSITION: She will be transferred back to [facility] on regular diet, activity as tolerated, physical therapy, respiratory care. She will continue IV Zyvox, Zosyn, and Medrol. She will continue do not resuscitate status. Her prognosis is poor given the extent of her lung disease. <ELECTRONICALLY SIGNED> By: Pablito Nam MD 05/20/18 1250 1203 1837 Pablito Nam MD /nt
--- NOTE | ~2018-05-08 | HC ---
[facility] [address] [place] [address] CONSULTATION Name: DEYANIRA BAILEY Room #: 350-P [facility] IN M.R.#: [id number] Admission: 05/08/18 Attend Phys: Wm Eddy Discharge: 05/17/18 Date of : 57 Report #: [id number] THIS REPORT FOR: //name// CC: Adrian Mei DATE OF SERVICE: 05/09/2018 INCOMPLETE DICTATION NEPHROLOGY CONSULTATION REASON FOR CONSULTATION: Acute kidney injury. HISTORY OF PRESENT ILLNESS: This 63-year-old patient, with very severe oxygen and steroid dependent COPD, also with ongoing treatment for Mycobacterium avium complex, had been hospitalized here with respiratory failure, has been managed at [facility] for the last couple of weeks, has become progressively worse and weaker with rising creatinine from 0.[address] up to 2.3 two days ago and 3.2 today. Also, some hyperkalemia and hyponatremia were noted. She was admitted here. PAST MEDICAL HISTORY: Severe COPD, as mentioned. She also has fibromyalgia and Mycobacterium avium complex as mentioned. There is also a diagnosis of bronchiectasis, history of hypertension, some history of coronary artery disease with previous hysterectomy and chronic pain syndrome. FAMILY HISTORY: Negative. SOCIAL HISTORY: Long-term heavy smoker, not been able to smoke lately as she has been in the hospital. REVIEW OF SYSTEMS: GENERAL: She has been weaker all the time, but her appetite has been good. EYES: Vision okay. ENT: Hearing okay, swallows okay. No mouth sores. ENDOCRINE: No diabetes. RESPIRATORY: Easily short winded with chronic cough. CARDIAC: No current chest pain. She has had some swelling in her legs, but not currently. GASTROINTESTINAL: Good appetite, without bloody stools. GENITOURINARY: Good urinary stream, without dysuria or renal stones. MUSCULOSKELETAL: She does have some chronic arthralgia and had diagnosis of fibromyalgia. NEUROLOGIC: Generalized weakness only. No seizure or stroke. PSYCHIATRIC: Chronic anxiety. [facility] [address] [place] [address] CONSULTATION Name: DEYANIRA BAILEY Room #: 350-P [facility] IN ..#: [id number] Admission: 05/08/18 Attend Phys: Wm Eddy Discharge: 05/17/18 Date of : 57 Report #: [id number] PHYSICAL EXAMINATION: GENERAL: This is a chronically ill-appearing patient, cushingoid appearance. SKIN: Otherwise, unremarkable. SKELETAL: Nonobese. HEENT: Extraocular movements are full. No scleral icterus. Hearing and vision are intact. Mucous membranes are moist. Tongue, buccal mucosa benign. NECK: Supple. CHEST: Shows diminished breath sounds with occasional rhonchi. HEART: Regular, but distant. ABDOMEN: Soft and nontender, without bruits, masses or organomegaly. EXTREMITIES: Show absolutely no edema. Pulses slightly diminished. NEUROLOGIC: Grossly intact. LABORATORY DATA: No urinalysis. Hemoglobin is 9.9, white count 7.8 and platelets 272,000. Sodium 123, potassium 5.5, chloride 87, bicarbonate 30, BUN 62 and creatinine 3.2. ASSESSMENT AND PLAN: 1. Acute kidney injury. She had been receiving relatively high dose of furosemide. She has been getting lisinopril. She has been getting Bactrim. These are oral agents, which are contributing to her acute kidney injury, all of which will be stopped. IV fluids are indicated. I suspect she will get better fairly readily, at least hopefully. For completeness, we will also check a urinalysis and increase her IV fluids. She may need some fluid restriction as well. 2. Severe steroid-dependent and oxygen-dependent chronic obstructive pulmonary disease. 3. Microbacterium avium complex. 4. History of fibromyalgia. 5. Generalized weakness and debility. DICTATION ENDS HERE. <ELECTRONICALLY SIGNED> By: Alpesh Briones MD 05/23/18 1106 1031 0041 Alpesh Briones MD /nt
--- NOTE | ~2018-05-08 | HC ---
[facility] [place] [address] [place] [address] CONSULTATION Name: DEYANIRA BAILEY Room #: 350-P ADM IN M.R.#: [id number] Admission: 05/08/18 Attend Phys: Wm Eddy Discharge: Date of : 57 Report #: [id number] THIS REPORT FOR: //name// CC: Adrian Mei TYPE OF REPORT: Infectious diseases consultation. REASON FOR CONSULTATION: I was asked to evaluate concerning pneumonia. HISTORY OF PRESENT ILLNESS: The patient was a 63-year old with underlying history of advanced COPD with bronchiectasis. She has been treated for Mycobacterium avium complex for over 18 months. Continues to have increased bronchial secretions. Hospitalized last month with exacerbation of her bronchiectasis. She identified Stenotrophomonas. Treated with Bactrim. She had CT scan repeated, which showed stable changes in the left upper lobe. Plan was for cancer screening testing and outpatient followup. She has required continued corticosteroids. She was at [facility] for the last several weeks. She developed increased issues with constipation. She had continued bronchitis symptoms and congestion. Developed acute renal failure and transferred back to Health system for further care. Her most recent sputum culture had shown Pseudomonas aeruginosa and was started on Zosyn. There has been no fever or chills. She has had no pleuritic chest pain. No hemoptysis. Become short of breath with any activity. Remains on oxygen per nasal cannula. Has significant amount of sputum production. PAST MEDICAL HISTORY: Unchanged from her consultation last month with no changes. FAMILY HISTORY: Unchanged from her consultation last month with no changes. SOCIAL HISTORY: Unchanged from her consultation last month with no changes. ALLERGIES: LEVAQUIN. MEDICATIONS: As noted on her MAR including clarithromycin, ethambutol, rifabutin, fluconazole, Bactrim and now Zosyn. REVIEW OF SYSTEMS: CONSTITUTIONAL: No rashes or decubiti. LYMPHATIC: No adenopathy noted. NEUROLOGICAL: No neurologic issues. PULMONARY: As above. CARDIOVASCULAR: Negative. GASTROINTESTINAL: As above. GENITOURINARY: Negative. JOINTS: Negative. PSYCHIATRIC: Has underlying anxiety issues. [facility] [address] [place] [address] CONSULTATION Name: DEYANIRA BAILEY [place] Room #: 350-P [facility] IN M.R.#: [id number] Admission: 05/08/18 Attend Phys: Wm Eddy Discharge: Date of : 57 Report #: [id number] PHYSICAL EXAMINATION: VITAL SIGNS: Afebrile and hemodynamically stable. GENERAL: The patient is in bed with frequent, loose, minimally productive cough. SKIN: She was tanned. No rash or decubiti. No palpable adenopathy. EYES: Without scleral icterus or conjunctivitis. MOUTH: Without mucositis. NECK: Supple, with no thyromegaly or mass. No JVD. LUNGS: Coarse breath sounds bilaterally. Scattered rhonchi. No consolidation. HEART: Regular, without murmur. ABDOMEN: Mildly distended. Had fullness in the left lower quadrant. No definite mass or hepatosplenomegaly. EXTREMITIES: Without edema or cyanosis. NEUROLOGICAL: Nonfocal with no cranial nerve abnormalities. Strength was normal throughout. Sensation is intact throughout. LABORATORY DATA: Hemoglobin 9.9, sodium 123, potassium 5.5, BUN 62 and creatinine 3.2. Sputum culture showed Pseudomonas aeruginosa, which was sensitive to Zosyn. WBC 7.8 and platelet count 272,000. Differential unremarkable. RADIOLOGICAL DATA: Chest x-ray showed stable COPD and bi-apical pleural parenchymal scarring. The right lower lobe nodular density, unchanged. Ultrasound negative for ureteral obstruction. IMPRESSION: 1. A 63-year old with advanced chronic obstructive pulmonary disease and bronchiectasis. Now has exacerbation of such with pseudomonas. 2. Mycobacterium avium complex infection complicating Bronchiectasis. 3. Pulmonary nodule, indeterminate. 4. Acute kidney injury, suspecting acute tubular necrosis. We will need further evaluation. We will adjust antibiotics accordingly. RECOMMENDATIONS: We will continue IV antibiotic therapy and adjust for renal insufficiency. Check urinalysis, urine sodium and creatinine. Nephrology evaluation. Await final culture results from her previous workup. <ELECTRONICALLY SIGNED> By: Dash Mei MD 05/10/18 1037 1207 [id number] Dash Mei MD /nt
[~2018-05-08 14:29] MED LIST changes: +FLUCONAZOLE 10100 MG PO; +HYDROCODON-ACE1 EAC5 PO; +IPRAT-ALBUT 0.5-3 ML INH; +PULMICORT0.5 MG/22 INH; +SOLU-MEDRO125 MG/23 IV PUSH
[2018-05-08 15:47] VITALS: BP 110/67
[2018-05-08 16:40] VITALS: BP 110/67
[2018-05-08 19:12] LABS: ABSOLUTE NEUTROPHILS 7.6 thou/uL (1.4-8.2); BASOPHILS 0.2 % (0.0-2.0); HEMATOCRIT 28.4 % (37.0-47.0); HEMOGLOBIN 9.9 gm/dL (12.0-15.0); LYMPHOCYTES 0.8 % (24.0-44.0); MCH 30.6 pg (26.0-34.0); MCHC 34.8 g/dL (28.0-37.0); MCV 87.9 fL (80.0-100.0); MONOCYTES 2.5 % (1.0-8.0); PLATELET COUNT 272 thou/uL (150-400); POLYS 96.5 % (36.0-66.0); RBC 3.22 mil/uL (4.20-5.00); RDW 13.9 % (10.5-14.5); WBC 7.8 thou/uL (4.0-11.0)
[2018-05-08 19:18] LABS: CALCIUM 8.1 mg/dL (8.5-10.1); CREATININE 3.2 mg/dL (0.6-1.0); POTASSIUM 5.5 mmol/L (3.5-5.1)
[2018-05-08 20:18] VITALS: BP 104/60; BP 134/58
[2018-05-09 04:54] VITALS: BP 129/65
[2018-05-09 10:06] VITALS: BP 121/84
[2018-05-09 21:30] VITALS: BP 113/55
[2018-05-10 04:07] VITALS: BP 116/97
[2018-05-10 04:29] LABS: BE(vivo) -1.9 mmol/L (-2 to +3); HCO3 24.9 mmol/L (22.0-26.0); PCO2 52.1 mmHg (35.0-45.0); PO2 56.3 mmHg (80.0-100.0); sO2 85.9 % (92.0-98.0)
[2018-05-10 04:31] LABS: pH 7.298 (7.360-7.450)
[2018-05-10 05:35] LABS: HEMATOCRIT 33.9 % (37.0-47.0); HEMOGLOBIN 11.1 gm/dL (12.0-15.0); MCH 29.7 pg (26.0-34.0); MCHC 32.8 g/dL (28.0-37.0); MCV 90.5 fL (80.0-100.0); RBC 3.74 mil/uL (4.20-5.00); RDW 14.2 % (10.5-14.5); WBC 3.2 thou/uL (4.0-11.0)
[2018-05-10 05:43] LABS: CALCIUM 8.2 mg/dL (8.5-10.1)
[2018-05-10 05:47] LABS: ALBUMIN 2.8 g/dL (3.4-5.0); PHOSPHORUS 5.7 mg/dL (2.5-4.9)
[2018-05-10 06:17] LABS: URINE BILIRUBIN NEGATIVE (Negative); URINE BLOOD NEGATIVE (Negative); URINE CLARITY CLEAR; URINE COLOR YELLOW; URINE GLUCOSE-RANDOM* NEGATIVE (Negative); URINE KETONES NEGATIVE (Negative); URINE LEUKOCYTES-REFLEX NEGATIVE (Negative); URINE NITRITE-REFLEX NEGATIVE (Negative); URINE PROTEIN (DIPSTICK) NEGATIVE (Negative); URINE UROBILINOGEN 0.2 E.U./dl (0.2-1.0)
[2018-05-10 07:35] VITALS: BP 92/39
[2018-05-10 11:29] VITALS: BP 110/61
[2018-05-10 13:47] LABS: PCO2 39.1 mmHg (35.0-45.0); PO2 70.8 mmHg (80.0-100.0); pH 7.369 (7.360-7.450); sO2 93.9 % (92.0-98.0)
[2018-05-10 15:22] VITALS: BP 119/68
[2018-05-10 20:11] VITALS: BP 112/65
[2018-05-11 00:39] VITALS: BP 148/58
[2018-05-11 03:50] VITALS: BP 111/81
[2018-05-11 05:06] LABS: BE(vivo) 0.7 mmol/L (-2 to +3); HCO3 25.9 mmol/L (22.0-26.0); PCO2 44.3 mmHg (35.0-45.0); PO2 85.3 mmHg (80.0-100.0); pH 7.385 (7.360-7.450); sO2 96.3 % (92.0-98.0)
[2018-05-11 06:34] LABS: ABSOLUTE NEUTROPHILS 5.6 thou/uL (1.4-8.2); BASOPHILS 0.8 % (0.0-2.0); HEMATOCRIT 24.4 % (37.0-47.0); LYMPHOCYTES 1.4 % (24.0-44.0); MCH 29.7 pg (26.0-34.0); MCV 87.4 fL (80.0-100.0); MONOCYTES 1.7 % (1.0-8.0); POLYS 96.1 % (36.0-66.0); RBC 2.79 mil/uL (4.20-5.00); RDW 13.8 % (10.5-14.5); WBC 5.9 thou/uL (4.0-11.0)
[2018-05-11 06:43] LABS: HEMOGLOBIN 8.3 gm/dL (12.0-15.0); PLATELET COUNT 224 thou/uL (150-400)
[2018-05-11 07:02] LABS: CALCIUM 7.2 mg/dL (8.5-10.1); PHOSPHORUS 2.9 mg/dL (2.5-4.9); TOTAL BILIRUBIN 0.5 mg/dL (<0.1-1.0); TOTAL PROTEIN 4.8 g/dL (6.4-8.2)
[2018-05-11 07:08] LABS: CREATININE 1.3 mg/dL (0.6-1.0); POTASSIUM 4.5 mmol/L (3.5-5.1)
[2018-05-11 07:23] VITALS: BP 131/71
[2018-05-11 11:36] VITALS: BP 140/78
[2018-05-11 15:33] VITALS: BP 135/85
[2018-05-11 19:11] VITALS: BP 166/88
[2018-05-12 00:05] VITALS: BP 130/76
[2018-05-12 03:50] VITALS: BP 139/75
[2018-05-12 07:27] VITALS: BP 147/88
[2018-05-12 08:14] LABS: ALBUMIN 1.8 g/dL (3.4-5.0); CALCIUM 7.5 mg/dL (8.5-10.1); CREATININE 0.9 mg/dL (0.6-1.0); PHOSPHORUS 2.1 mg/dL (2.5-4.9); POTASSIUM 4.4 mmol/L (3.5-5.1)
[2018-05-12 10:15] LABS: ABSOLUTE NEUTROPHILS 6.8 thou/uL (1.4-8.2); BASOPHILS 0.3 % (0.0-2.0); HEMATOCRIT 25.7 % (37.0-47.0); HEMOGLOBIN 8.9 gm/dL (12.0-15.0); MCH 31.2 pg (26.0-34.0); MCHC 34.8 g/dL (28.0-37.0); MCV 89.7 fL (80.0-100.0); MONOCYTES 1.4 % (1.0-8.0); PLATELET COUNT 213 thou/uL (150-400); POLYS 97.3 % (36.0-66.0); RBC 2.86 mil/uL (4.20-5.00); RDW 14.4 % (10.5-14.5); WBC 6.9 thou/uL (4.0-11.0)
[2018-05-12 15:32] VITALS: BP 151/90
[2018-05-12 19:02] VITALS: BP 151/83
[2018-05-13 03:15] VITALS: BP 144/81
[2018-05-13 04:25] LABS: ALBUMIN 1.6 g/dL (3.4-5.0); CALCIUM 6.9 mg/dL (8.5-10.1); CREATININE 0.9 mg/dL (0.6-1.0); PHOSPHORUS 2.6 mg/dL (2.5-4.9); POTASSIUM 3.7 mmol/L (3.5-5.1)
[2018-05-13 07:17] VITALS: BP 171/88
[2018-05-13 11:09] VITALS: BP 187/102
[2018-05-13 15:36] VITALS: BP 188/102
[2018-05-13 19:06] VITALS: BP 178/98
[2018-05-13 23:07] LABS: ADENOVIRUS Negative (Negative); INFLUENZA A Negative (Negative); INFLUENZA B Negative (Negative); METAPNEUMOVIRUS Negative (Negative); PARAINFLUENZA 1 Negative (Negative); PARAINFLUENZA 2 Negative (Negative); PARAINFLUENZA 3 Negative (Negative); RHINOVIRUS Negative (Negative); RSV A Negative (Negative); RSV B Negative (Negative)
[2018-05-14 03:50] LABS: ALBUMIN 1.9 g/dL (3.4-5.0); CALCIUM 7.3 mg/dL (8.5-10.1); CREATININE 0.9 mg/dL (0.6-1.0); PHOSPHORUS 1.9 mg/dL (2.5-4.9); POTASSIUM 4.2 mmol/L (3.5-5.1)
[2018-05-14 04:11] VITALS: BP 174/105
[2018-05-14 07:31] VITALS: BP 187/106
[2018-05-14 11:32] VITALS: BP 183/96
[2018-05-14 15:09] VITALS: BP 165/99
[2018-05-15 04:24] VITALS: BP 146/91
[2018-05-15 06:08] LABS: ALBUMIN 1.9 g/dL (3.4-5.0); CALCIUM 7.3 mg/dL (8.5-10.1); CREATININE 0.9 mg/dL (0.6-1.0); PHOSPHORUS 2.7 mg/dL (2.5-4.9); POTASSIUM 5.1 mmol/L (3.5-5.1); TOTAL BILIRUBIN 0.5 mg/dL (<0.1-1.0); TOTAL PROTEIN 5.1 g/dL (6.4-8.2)
[2018-05-15 06:50] LABS: BE(vivo) 1.7 mmol/L (-2 to +3); HCO3 26.5 mmol/L (22.0-26.0); PCO2 42.7 mmHg (35.0-45.0); pH 7.411 (7.360-7.450); sO2 98.7 % (92.0-98.0)
[2018-05-15 07:31] LABS: MCH 30.1 pg (26.0-34.0); MCHC 33.4 g/dL (28.0-37.0); MCV 90.1 fL (80.0-100.0); RBC 2.99 mil/uL (4.20-5.00); RDW 14.8 % (10.5-14.5); WBC 6.3 thou/uL (4.0-11.0)
[2018-05-15 07:44] VITALS: BP 175/89
[2018-05-15 08:25] LABS: ABSOLUTE NEUTROPHILS 5.5 thou/uL (1.4-8.2); NUCLEATED RBCS 1 /100WBC
[2018-05-15 08:38] LABS: PLATELET COUNT 248 thou/uL (150-400)
[2018-05-15 08:39] LABS: PLATELET ESTIMATE NORMAL
[2018-05-15 11:52] VITALS: BP 172/86
[2018-05-15 16:13] VITALS: BP 171/83
[2018-05-15 18:38] VITALS: BP 160/79
[2018-05-15 19:20] VITALS: BP 171/94
[2018-05-16 03:40] VITALS: BP 155/87
[2018-05-16 06:06] LABS: ALBUMIN 2.1 g/dL (3.4-5.0); CALCIUM 7.4 mg/dL (8.5-10.1); CREATININE 1.2 mg/dL (0.6-1.0); PHOSPHORUS 2.8 mg/dL (2.5-4.9); POTASSIUM 4.7 mmol/L (3.5-5.1)
[2018-05-16 08:18] VITALS: BP 160/97
[2018-05-16 11:11] VITALS: BP 146/86
[2018-05-16 16:00] VITALS: BP 164/96
[2018-05-16 18:55] VITALS: BP 122/83
[2018-05-17 04:20] VITALS: BP 147/74
[2018-05-17 04:42] LABS: CALCIUM 7.1 mg/dL (8.5-10.1); CREATININE 1.1 mg/dL (0.6-1.0); PHOSPHORUS 2.8 mg/dL (2.5-4.9)
[2018-05-17 05:00] LABS: POTASSIUM 3.6 mmol/L (3.5-5.1)
[2018-05-17 07:30] VITALS: BP 174/84
[2018-05-17] MEDS ORDERED: ZYVOX600 MG/300 IVPB (11:50)
[2018-05-17] MEDS ORDERED: NYSTATIN100000 UNI SW&SWALLOW (11:50)
[2018-05-17] MEDS ORDERED: ZOSYN 3.3753.375 GM IV (11:50)
[2018-05-17] MEDS ORDERED: AMLODIPINE BESYL5 M1 PO (11:51)
[2018-05-17] MEDS ORDERED: ALPRAZOLAM 0.0.25 M1 PO (11:51)
[2018-05-17] MEDS ORDERED: METOPROLOL SUCC25 M1 PO (11:51)
[2018-05-17] MEDS ORDERED: ENOXAPARIN30 MG/0.1 SUBQ (11:51)
[2018-05-17] MEDS ORDERED: PEPCID20 MG PO (11:52)
[2018-05-17] MEDS ORDERED: NOVOLOG100 UNIT/1 SUBQ (11:52)
[2018-05-17] MEDS ORDERED: K-DUR 20 MEQ T20 MEQ PO (11:52)
[2018-05-17] MEDS ORDERED: DEMADEX20 MG PO (11:52)
[2018-05-17] MEDS ORDERED: SOLU-MEDRO125 MG/23 IV PUSH (11:52)
[2018-05-17 12:15] VITALS: BP 149/107
[2018-05-17 16:24] VITALS: BP 148/79
== END 2018-05-17 17:57 | DRG 177 ==
LOC: 4E 14:29 → 3W 15:02
PROVIDERS: Internal Medicine; Internal Medicine Geriatric Medicine; Internal Medicine Nephrology; Pediatrics; Specialist
PROC: 05HB33Z Insertion of Infusion Device into Right Basilic Vein, Percutaneous Approach (ICD-10-PCS; principal; 2018-05-09)
PROC: 5A09357 Assistance with Respiratory Ventilation, Less than 24 Consecutive Hours, Continuous Positive Airway Pressure (ICD-10-PCS; 2018-05-10)
PROC: 5A09357 Assistance with Respiratory Ventilation, Less than 24 Consecutive Hours, Continuous Positive Airway Pressure (ICD-10-PCS; 2018-05-11)
DX: J15.1 Pneumonia due to Pseudomonas (principal); J96.21 Acute and chronic respiratory failure with hypoxia; J96.22 Acute and chronic respiratory failure with hypercapnia; N17.9 Acute kidney failure, unspecified; E87.1 Hypo-osmolality and hyponatremia; J44.1 Chronic obstructive pulmonary disease with (acute) exacerbation; G93.40 Encephalopathy, unspecified; A31.0 Pulmonary mycobacterial infection; R91.1 Solitary pulmonary nodule; I10 Essential (primary) hypertension; I25.10 Atherosclerotic heart disease of native coronary artery without angina pectoris; G89.4 Chronic pain syndrome; R33.9 Retention of urine, unspecified; E87.5 Hyperkalemia; F41.9 Anxiety disorder, unspecified; D63.8 Anemia in other chronic diseases classified elsewhere; E83.39 Other disorders of phosphorus metabolism; Z88.8 Allergy status to other drugs, medicaments and biological substances; Z90.710 Acquired absence of both cervix and uterus; Z99.81 Dependence on supplemental oxygen; Z79.52 Long term (current) use of systemic steroids; Z87.891 Personal history of nicotine dependence; Z79.899 Other long term (current) drug therapy
CPT/HCPCS: 10783; 10879; 27000